=== PATIENT | female | born 1950 | race Caucasian/White ===

== ENCOUNTER → 2016-05-05 | Outpatient (CLI) | payer OTHER ==
[~2016-05-05] MED LIST: CIPR500T89 PO; FLUO10TA2; LISI10TA4 PO; LOPR50TA OR; METO25TA2; PERC5TAB6 PO; PRAV10TA2; PRAV20TA2 PO; PREV15CA OR; PROZ40CA OR; SERT-138 PO; SERT-141 PO; ZOFR4TAB3 PO; ZOFR4TAB3 SL; aleve
--- NOTE | 2016-05-05 15:35 | REPMRS ---
Patient History The patient states she has not had a clinical breast exam in over a year. Patient is postmenopausal and is nulliparous. Family history of breast cancer in sister at age 50 and breast cancer in mother at age 70. Digital Mammo Screening Bilat: May 05, 2016 - Exam #: [id number] Bilateral CC and MLO view(s) were taken. Technologist: Amy Infante, Technologist Prior study comparison: June 05, 2014, bilateral digital mammo screening bilat performed at [facility]. December 02, 2010, digital bilateral screening mammo performed at [facility]. FINDINGS: There are scattered fibroglandular densities. There has been no change in the appearance of the mammogram from the prior studies. There is a mild amount of scattered fibroglandular density which is fairly symmetric. There is no interval development of dominant mass, architectural distortion, or clustered microcalcification suggestive of malignancy. ASSESSMENT: BI-RADS/ACR category 1 mammogram. Negative. Recommendation Routine screening mammogram in 1 year (for women over age 40). This mammogram was interpreted with the aid of an FDA-approved computer-aided dectection system. Electronically Signed By: Brodie Atwood MD 05/05/16 [id number]
== END ==
LOC: M RAD 14:46
PROVIDERS: ATTEND Nurse Practitioner Adult Health
DX: Z12.31 Encounter for screening mammogram for malignant neoplasm of breast (principal)

== ENCOUNTER 2016-08-18 09:22 | Emergency (ER) | payer OTHER ==
[~2016-08-18] VITALS: Ht 167.6 cm; Wt 92.5 kg
[~2016-08-18 09:22] MED LIST changes: -SERT-141 PO; +SERT50TA PO
[2016-08-18 09:24] VITALS: BP 171/92
[2016-08-18] MEDS ORDERED: GABA-279 PO (09:39)
[2016-08-18] MEDS ORDERED: ASPI81TA85 PO (09:39)
[2016-08-18] MEDS ORDERED: CLIN1CAP5 PO ×2 (09:39→11:14)
[2016-08-18] MEDS ORDERED: NAPR500T2 PO (11:40)
== END 2016-08-18 11:34 | disposition home or self-care (01) ==
LOC: M ED 11:30
DX: L03.90 Cellulitis, unspecified (principal); K14.0 Glossitis; G47.33 Obstructive sleep apnea (adult) (pediatric); Z87.891 Personal history of nicotine dependence; Z87.442 Personal history of urinary calculi; Z98.890 Other specified postprocedural states; Z79.899 Other long term (current) drug therapy; Z79.2 Long term (current) use of antibiotics; Z79.82 Long term (current) use of aspirin; Z88.0 Allergy status to penicillin; Z88.5 Allergy status to narcotic agent; Z88.8 Allergy status to other drugs, medicaments and biological substances

== ENCOUNTER 2016-09-10 13:42 | Emergency (ER) | payer OTHER ==
[~2016-09-10] VITALS: Ht 167.6 cm; Wt 92.5 kg
[~2016-09-10 13:42] MED LIST changes: +ASPI81TA85 PO; +CLIN1CAP5 PO; +GABA-279 PO; +NAPR500T2 PO
[2016-09-10] MEDS ORDERED: PERCOCET 5MG/325MG TAB PO ONE (15:00)
[2016-09-10 15:13] LABS: BASO # 0.1 K/mm3 (0.0-0.2); BASO % 1.2 % (0.0-1.0); EOS # 0.5 K/mm3 (0.0-0.50); EOS % 6.9 % (0.0-3.0); LARGE UNSTAINED CELL # 0.1 K/mm3 (0.0-0.4); LARGE UNSTAINED CELL % 1.9 % (0.0-4.0); LYMPH # 2.8 K/mm3 (1.5-4.5); LYMPH % 35.7 % (24.0-44.0); MEAN CORPUSCULAR HEMOGLOBIN 30.2 pg (27.0-33.0); MEAN CORPUSCULAR HGB CONC 33.4 g/dl (32.0-36.5); MEAN CORPUSCULAR VOLUME 90.5 fl (80.0-96.0); MONO # 0.6 K/mm3 (0.0-0.8); MONO % 8.5 % (0.0-5.0); NEUTROPHILS # 3.5 K/mm3 (1.8-7.7); NEUTROPHILS % 45.9 % (36.0-66.0); PLATELET COUNT, AUTOMATED 306 k/mm3 (150-450); RED CELL DISTRIBUTION WIDTH 12.3 % (11.5-14.5); WHITE BLOOD COUNT 7.6 K/mm3 (4.0-10.0)
[2016-09-10 15:35] LABS: ANION GAP 4 MEQ/L (8-16); BLOOD UREA NITROGEN 18 MG/DL (7-18); CALCIUM LEVEL 9.6 MG/DL (8.8-10.2); CARBON DIOXIDE LEVEL 32 MEQ/L (21-32); CHLORIDE LEVEL 106 MEQ/L (98-107); GLOMERULAR FILTRATION RATE > 60.0 (>45); GLUCOSE, FASTING 91 MG/DL (80-110); POTASSIUM SERUM 4.7 MEQ/L (3.5-5.1); SODIUM LEVEL 142 MEQ/L (136-145)
--- NOTE | 2016-09-10 15:54 | REP ---
Clinical: Right flank pain. Findings: Lung bases demonstrate mild chronic stable changes. Visualized portions of the heart and pericardium are normal. Fatty infiltration to the liver noted. Spleen, pancreas, gallbladder, bilateral adrenal glands and kidneys are essentially normal. 1 mm nonobstructing right renal calculus cannot be excluded (image 68). Evidence of prior gastric surgery. Small and large bowel without obstruction or acute inflammatory process. Pelvis demonstrates collapsed bladder and evidence for prior hysterectomy. No ascites. No adenopathy. No free air. Atherosclerotic changes of the aorta noted without aneurysm. Musculoskeletal structures demonstrate age-related degenerative changes without focal osseous abnormality Impression: Fatty infiltration to the liver without focal hepatic lesion identified. 1 mm nonobstructing right renal calculus. No acute intra-abdominal or pelvic pathology appreciated. Signed by Zaid Cueto MD 09/10/2016 03:45 P
[2016-09-10] MEDS ORDERED: ZANA4TAB PO (16:29)
[2016-09-10 16:39] VITALS: BP 144/72
== END 2016-09-10 16:47 | disposition home or self-care (01) ==
LOC: M ED 15:02
DX: M54.5 Low back pain (principal); Z87.442 Personal history of urinary calculi; E78.5 Hyperlipidemia, unspecified; F32.9 Major depressive disorder, single episode, unspecified; K76.9 Liver disease, unspecified; N20.0 Calculus of kidney; Z79.82 Long term (current) use of aspirin; Z79.899 Other long term (current) drug therapy; Z88.5 Allergy status to narcotic agent; Z88.0 Allergy status to penicillin; Z88.8 Allergy status to other drugs, medicaments and biological substances

== ENCOUNTER → 2016-10-14 | Outpatient (CLI) | payer OTHER ==
[~2016-10-14] MED LIST changes: +CYCL5TA PO; +TRAM50TA2 PO; +ZANA4TAB PO; +ZANTTAB9 PO
--- NOTE | 2016-10-15 01:19 | REP ---
Clinical: Pain. Technique: AP and frog lateral views of the left hip. Findings: Mild age-related changes include increased sclerosis to the acetabular roof and minimal joint space narrowing. No significant osteophytosis, cortical irregularity or periarticular calcifications are appreciated. Impression: Mild age-related degenerative changes. Signed by Zaid Cueto MD 10/15/2016 01:11 A
--- NOTE | 2016-10-15 02:01 | REP ---
Clinical: Bilateral knee pain. Technique: AP and lateral views of the right and left knee. Comparison: Left knee dated 11/03/06 Findings: Moderate bilateral tricompartmental osteoarthritic degenerative changes are appreciated. Findings include subchondral sclerosis along the tibial plateau, cortical irregularity, elements of chondrocalcinosis as well as patellofemoral joint space narrowing with associated subchondral sclerosis and marginal osteophytes. No acute fracture dislocation. No obvious effusion. Impression: Moderate bilateral tricompartmental osteoarthritic degenerative changes. Signed by Zaid Cueto MD 10/15/2016 01:53 A
== END ==
LOC: M RAD 15:29
PROVIDERS: ATTEND Nurse Practitioner Adult Health
DX: M17.12 Unilateral primary osteoarthritis, left knee (principal); M17.0 Bilateral primary osteoarthritis of knee

== ENCOUNTER 2016-10-16 04:34 | Emergency (ER) | payer OTHER ==
[~2016-10-16] VITALS: Ht 167.6 cm; Wt 95.0 kg
[~2016-10-16 04:34] MED LIST changes: +CIPR-249 PO; -CIPR500T89 PO; +CLIN150C14 PO; -CLIN1CAP5 PO; -CYCL5TA PO; -NAPR500T2 PO; +NAPR500T3 PO; +PERC5TAB12 PO; -PERC5TAB6 PO; -TRAM50TA2 PO; -ZANTTAB9 PO
[2016-10-16] MEDS ORDERED: ZANTTAB9 PO (04:44)
[2016-10-16] MEDS ORDERED: NS 1,000 ML IV ONE (06:00)
[2016-10-16] MEDS ORDERED: ONDANSETRON 4MG/2ML VIAL (J2405) IV ONE (06:00)
[2016-10-16] MEDS: MORPHINE 4 MG/ML 1ML SYRINGE IV PRN ×2 (06:33→06:59)
[2016-10-16 06:40] LABS: BASO # 0.1 K/mm3 (0.0-0.2); BASO % 0.9 % (0.0-1.0); EOS # 0.3 K/mm3 (0.0-0.50); LARGE UNSTAINED CELL # 0.2 K/mm3 (0.0-0.4); LARGE UNSTAINED CELL % 1.6 % (0.0-4.0); LYMPH # 2.1 K/mm3 (1.5-4.5); LYMPH % 19.6 % (24.0-44.0); MEAN CORPUSCULAR HEMOGLOBIN 30.5 pg (27.0-33.0); MEAN CORPUSCULAR HGB CONC 34.2 g/dl (32.0-36.5); MEAN CORPUSCULAR VOLUME 89.1 fl (80.0-96.0); MONO # 0.4 K/mm3 (0.0-0.8); MONO % 3.8 % (0.0-5.0); NEUTROPHILS # 6.9 K/mm3 (1.8-7.7); NEUTROPHILS % 71.1 % (36.0-66.0); PLATELET COUNT, AUTOMATED 297 k/mm3 (150-450); RED CELL DISTRIBUTION WIDTH 12.2 % (11.5-14.5); WHITE BLOOD COUNT 9.7 K/mm3 (4.0-10.0)
--- NOTE | 2016-10-16 06:50 | REPUSA ---
CLINICAL HISTORY: Abdominal pain. TECHNIQUE: Multiple axial, sagittal and coronal CT images were obtained through the abdomen and pelvi s without administration of oral or IV contrast material. COMMENTS: The liver is moderately enlarged with decreased attenuation without mass or defect. There is no intra or extrahepatic biliary ductal dilatation. The spleen is normal. The gallbladder is within normal li mits. The pancreas is of normal contour and attenuation characteristics. There is no evidence of adre nal mass. 3 mm right renal nonobstructing stone. The kidneys are otherwise normal in size, shape and configuration. No ureteral calculi are identified . There is no hydroureter or hydronephrosis. There is no evidence for appendicitis. Fluid and mildly dilated proximal small bowels. Transition to normal caliber small bowels in the left lower quadrant. There is no evidence of abdominal ascites or lymphadenopathy. There is no evidence of intrinsic or extrinsic bladder mass. There is no pelvic ascites or lymphadeno zandra. Diffuse thickening of the wall of the bladder. Images of the lung bases show no evidence of pleural or parenchymal mass. There are no pleural effusi ons. The bony structures are free of lytic or blastic lesions. Multilevel degenerative changes are seen in volving the thoracolumbar spine. Scattered calcifications are seen involving the aorta and major branches compatible with atherosclero sis. IMPRESSION: Ileus versus partial small bowel obstruction. Suspected transition zone in the left lower quadrant. Nonobstructing right nephrolithiasis. Surgical changes of the stomach. Prior hysterectomy. Thank you for your kind referral of this patient.
[2016-10-16 07:02] LABS: ALBUMIN 4.4 GM/DL (3.2-5.2); ALBUMIN/GLOBULIN RATIO 1.33 (1.00-1.93); ALKALINE PHOSPHATASE 88 U/L (45-117); ALT/SGPT 37 U/L (12-78); ANION GAP 9 MEQ/L (8-16); AST/SGOT 27 U/L (15-37); BILIRUBIN,DIRECT 0.1 MG/DL (0.0-0.2); BILIRUBIN,TOTAL 0.6 MG/DL (0.2-1.0); BLOOD UREA NITROGEN 18 MG/DL (7-18); CALCIUM LEVEL 10.1 MG/DL (8.8-10.2); CARBON DIOXIDE LEVEL 23 MEQ/L (21-32); CHLORIDE LEVEL 106 MEQ/L (98-107); CREATININE FOR GFR 0.84 MG/DL (0.55-1.02); GLOMERULAR FILTRATION RATE > 60.0 (>45); GLUCOSE, FASTING 127 MG/DL (80-110); POTASSIUM SERUM 4.4 MEQ/L (3.5-5.1); SODIUM LEVEL 138 MEQ/L (136-145); TOTAL PROTEIN 7.7 GM/DL (6.4-8.2)
[2016-10-16] MEDS ORDERED: KETOROLAC 30 MG/ML VIAL (J1885) IV ONE (08:30)
--- NOTE | 2016-10-16 09:46 | REP ---
RIGHT UPPER QUADRANT ULTRASOUND: Real-time sonographic evaluation of the right upper quadrant is performed. The gallbladder demonstrates no evidence of intraluminal sludge or calculi, wall thickening or pericholecystic fluid. There is no intrahepatic or extrahepatic biliary dilatation, common bile duct measuring 5 mm in diameter. The liver demonstrates diffuse heterogeneous increased echotexture compatible with diffuse fatty infiltration. No gross liver or pancreatic mass is seen. The pancreas is not well seen due to overlying bowel gas. Right kidney demonstrates no hydronephrosis or nephrolithiasis with normal size at 11.8 cm in length. IMPRESSION: Diffuse fatty infiltration of the liver. Otherwise negative right upper quadrant ultrasound. Signed by Elvin Goel MD 10/16/2016 03:12 P
--- NOTE | 2016-10-16 10:31 | REP ---
REASON FOR EXAM: Back pain and scoliosis. This examination was completed at 5:54 a.m. and as per protocol it should have been immediately sent to [facility] for interpretation, however, it has been brought to my attention for interpretation today at 9:45 a.m. This examination was performed in my absentia. Lumbar vertebral body height is within normal limits. There is retrolisthesis of L5 on S1. Air densities are seen in the L2-2 through L5-S1 disc spaces inclusive. A small amount of air density is seen posterior to the posterior cortical margin of the superior endplate of S1. There is mild rightward translation of L2 on L3. Modic type 3 endplate changes are seen at L3-4. CT cannot rule out an acute disc extrusion. At the T11-12 level there is no bony cause of foraminal narrowing or central canal stenosis. At the T12-L1 level there is no bony cause of foraminal narrowing or central canal stenosis. At the L1-2 level there is a broad based annular bulge without bony cause of foraminal narrowing or central canal stenosis. At the L2-3 level there is a broad based annular bulge with a far left lateral component which is probably contacting and displacing the exited L2 nerve. The broad based bulge appears to efface, flatten, and straighten the anterior thecal sac. At the L3-4 level there is a broad based annular bulge which appears to flatten and straighten the anterior thecal sac. There is a far right lateral component probably contacting and possibly displacing the exited L3 nerve. Degenerative facet joint changes were present bilaterally with thickening of the ligamentum flava and the factors in concert appear to be causing mild to moderate central canal stenosis. At the L4-5 level there is a broad based annular bulge with a prominent right lateral component which is probably contacting possibly displacing the exited L4 nerve on the right. Degenerative facet joint changes are present bilaterally with thickening of the ligamentum flava and the factors in concert appears to be causing mild central canal stenosis. There is flattening and straightening of the anterior thecal sac. At the L5-S1 level there is an asymmetric broad based annular bulge. Air density is seen on the posterior extent of the broad based bulge likely secondary to a disc protrusion which cannot be imaged by CT. The broad based bulge seen in conjunction with degenerative facet joint changes bilaterally and thickening of the ligamentum flava along with the aforementioned retrolisthesis of L5 upon S1 are causing moderate central canal stenosis. IMPRESSION: 1. CT cannot rule out an acute disc extrusion. 2. Multilevel discogenic changes and related findings with degenerative changes involving the facet joints as described above. 3. Air densities consistent with degenerative disc disease with particular note made at L5-S1 as described above. 4. Consider neurosurgical consultation and obtain lumbar spine MRI for further evaluation. Signed by Landry Ortiz DO 10/16/2016 10:40 A
[2016-10-16] MEDS ORDERED: MORPHINE 4 MG/ML 1ML SYRINGE IV PRN (11:00)
--- NOTE | 2016-10-16 13:14 | REP ---
REASON: Low back pain and left lower extremity radicular symptoms. COMPARISON: 10/05/2012. Once again, there is loss of disc space height and disc hydrational signal at every level status quo. The marrow signal is unchanged remaining within normal limits. No abnormal signal has developed in the imaged portion of the spinal cord. At the L1-2 level there is a broad based annular bulge which has not changed significantly from the prior exam. There is no disc herniation, foraminal narrowing, or corie central canal stenosis. At the L2-3 level there is an asymmetric broad based annular bulge which has increased only slightly from the prior exam. It contacts, but does not flatten or straighten the anterior thecal sac. Degenerative facet joint changes are seen bilaterally with thickening of the ligamentum flava and the factors in concert are causing mild central canal stenosis with narrowing of the lateral recesses status quo. There is no acute disc extrusion or corie foraminal narrowing. At the L3-4 level there is a broad based annular bulge which is essentially unchanged. Degenerative facet joint changes were again seen bilaterally with thickening of the ligamentum flava and the factors in concert are causing mild unchanged central canal stenosis. There is no foraminal narrowing of acute disc extrusion. At the L4-5 level there is a broad based annular bulge which is unchanged from the prior exam. There is a flattening and straightening of the anterior surface of the thecal sac. There is degenerative facet joint change seen bilaterally with thickening of the ligamentum flava and the factors in concert are causing mild unchanged central canal stenosis. There is no corie foraminal narrowing or acute disc extrusion. At the L5-S1 level there is a broad based annular bulge which has increased slightly from the prior exam and seen in conjunction with a small central disc protrusion which causes a focal concave anterior deformity of the anterior thecal sac. The broad based bulge causes slight left foraminal narrowing without compression of the left L5 nerve. The appearance of this is unchanged from the prior exam. Degenerative facet joint changes are again seen bilaterally with mild thickening of the ligamentum flavum and the factors in concert cause minimal central canal stenosis status quo. There is no evidence of an acute disc extrusion. IMPRESSION: Multilevel discogenic changes as described above. Signed by Landry Ortiz DO 10/16/2016 01:43 P
[2016-10-16] MEDS ORDERED: TRAM50TA2 PO (14:34)
[2016-10-16] MEDS ORDERED: CYCL5TAB PO (14:35)
[2016-10-16 15:06] VITALS: BP 130/63
--- NOTE | 2016-10-19 15:12 | ED PDOC ---
Post-Departure Follow-Up radiology rpeort faxed to Annamaria Suazo MD Oct 19, 2016 15:12
== END 2016-10-16 15:19 | disposition home or self-care (01) ==
LOC: M ED 08:10
DX: M51.37 Other intervertebral disc degeneration, lumbosacral region (principal); N20.0 Calculus of kidney; K76.0 Fatty (change of) liver, not elsewhere classified; G89.29 Other chronic pain; Z79.82 Long term (current) use of aspirin; Z79.899 Other long term (current) drug therapy; Z88.0 Allergy status to penicillin; Z88.6 Allergy status to analgesic agent; Z88.8 Allergy status to other drugs, medicaments and biological substances
CPT/HCPCS: 72131; 72148; 74176; 76705; 80048; 80076; 81001; 83690; 85025; 87086; 93041; 96361; 96374; 96375; 99285; J1885; J2405

== ENCOUNTER 2017-01-28 09:52 | Outpatient (CLI) | payer OTHER ==
[~2017-01-28] VITALS: Ht 167.6 cm; Wt 93.4 kg
[~2017-01-28 09:52] MED LIST changes: +CYCL5TAB PO; +TRAM50TA2 PO; +ZANTTAB9 PO
[2017-01-28] MEDS ORDERED: NS 1,000 ML IV ONE (10:00)
[2017-01-28] MEDS ORDERED: PROPOFOL 500 MG/50 ML VIAL As Ordered ONE (10:36)
[2017-01-28] MEDS ORDERED: LIDOCAINE 2% INJ 100 MG/5 ML SDV (FOR ANES.) As Ordered ONE (10:37)
--- NOTE | 2017-01-28 11:44 | ROOR ---
Patient Name: Shirley Hernandez Procedure Date: 01/28/2017 11:20 AM Date of : 1950 Age: 66 Room: [facility] Gender: Female Note Status: Finalized Procedure: Upper GI endoscopy Indications: Surveillance for malignancy due to personal history of Becker's esophagus Providers: Asher CAMACHO MD Referring MD: Colin Boogie MD Requesting Provider: Medicines: Monitored Anesthesia Care Complications: No immediate complications. Procedure: Pre-Anesthesia Assessment: - The heart rate, respiratory rate, oxygen saturations, blood pressure, adequacy of pulmonary ventilation, and response to care were monitored throughout the procedure. The Endoscope was introduced through the mouth, and advanced to the jejunum. The upper GI endoscopy was accomplished without difficulty. The patient tolerated the procedure well. Findings: The Z-line was variable and was found 37 cm from the incisors. This was biopsied with a cold forceps for histology. The examined esophagus was normal. Diffuse mild inflammation characterized by erythema was found in the entire examined stomach. Evidence of a gastrojejunostomy was found in the gastric body. This was characterized by erythema. This was biopsied with a cold forceps for histology. Evidence of a fundoplication was found in the cardia. The wrap appeared intact. The examined duodenum was normal. The examined jejunum was normal. Impression: - Normal esophagus. with Z-line variable, 37 cm from the incisors. Biopsied. - A fundoplication was found at the cardia. The wrap appears intact. - A gastrojejunostomy was found in the body of the stomach, it is widely patent and characterized by erythema. Biopsied. - Scope passed through gastrojejunostomy into a normal appearing jejunum. - The antrum/pylorus is also easily passable and is normal in appearance. Normal examined duodenum. Recommendation: - Telephone endoscopist for pathology results in 2 weeks. - Repeat upper endoscopy in 3 years for surveillance. - Continue present medications. Asher Camacho MD Asher CAMACHO MD 01/28/2017 11:43:43 AM This report has been signed electronically. Number of Addenda: 0 Note Initiated On: 01/28/2017 11:20 AM Estimated Blood Loss: Estimated blood loss: none.
--- NOTE | 2017-01-28 12:00 | ROOR ---
Patient Name: Shirley Hernandez Procedure Date: 01/28/2017 11:21 AM Date of : 1950 Age: 66 Room: [facility] Gender: Female Note Status: Finalized Procedure: Colonoscopy Indications: Screening in patient at increased risk: Colorectal cancer in sister before age 60 Providers: Asher CAMACHO MD Referring MD: Colin Boogie MD Requesting Provider: Medicines: Monitored Anesthesia Care Complications: No immediate complications. Procedure: Pre-Anesthesia Assessment: - The heart rate, respiratory rate, oxygen saturations, blood pressure, adequacy of pulmonary ventilation, and response to care were monitored throughout the procedure. The Colonoscope was introduced through the anus and advanced to the terminal ileum, with identification of the appendiceal orifice and IC valve. The colonoscopy was performed without difficulty. The patient tolerated the procedure well. The quality of the bowel preparation was good. Findings: The perianal and digital rectal examinations were normal. (Exam: Complete, Prep: Good or Excellent.) Internal hemorrhoids were found during retroflexion. The hemorrhoids were large. The entire examined colon appeared normal on direct and retroflexion views. Impression: - (Exam: Complete, Prep: Good or Excellent.) - Internal hemorrhoids. - The entire colon is normal on direct and retroflexion views. - No specimens collected. Recommendation: - Repeat colonoscopy in 5 years for screening purposes. - (in view of early colon cancer and [employer]ISTR[employer] malignancies in your family history, would consider repeating colonoscopy in 3 years--to be discussed) Asher Camacho MD Asher CAMACHO MD 01/28/2017 11:59:30 AM This report has been signed electronically. Number of Addenda: 0 Note Initiated On: 01/28/2017 11:21 AM Estimated Blood Loss: Estimated blood loss: none.
[2017-01-28 12:25] VITALS: BP 156/93
== END 2017-01-28 12:28 | disposition home or self-care (01) ==
LOC: M OPP 09:52
PROVIDERS: ATTEND Internal Medicine Gastroenterology
DX: Z12.11 Encounter for screening for malignant neoplasm of colon (principal); Z80.0 Family history of malignant neoplasm of digestive organs; K64.8 Other hemorrhoids; K22.70 Barrett's esophagus without dysplasia; K22.8 Other specified diseases of esophagus; Z98.0 Intestinal bypass and anastomosis status; Z98.890 Other specified postprocedural states; K31.89 Other diseases of stomach and duodenum; I25.6 Silent myocardial ischemia; E78.5 Hyperlipidemia, unspecified; K59.00 Constipation, unspecified; R19.7 Diarrhea, unspecified; F32.9 Major depressive disorder, single episode, unspecified; G43.909 Migraine, unspecified, not intractable, without status migrainosus; G61.81 Chronic inflammatory demyelinating polyneuritis; G47.30 Sleep apnea, unspecified; Z87.442 Personal history of urinary calculi; Z87.891 Personal history of nicotine dependence; Z87.19 Personal history of other diseases of the digestive system; Z88.5 Allergy status to narcotic agent; Z88.8 Allergy status to other drugs, medicaments and biological substances; Z88.0 Allergy status to penicillin; Z79.899 Other long term (current) drug therapy; Z80.3 Family history of malignant neoplasm of breast; Z80.8 Family history of malignant neoplasm of other organs or systems

== ENCOUNTER → 2017-05-10 | Outpatient (CLI) | payer OTHER ==
[2017-05-10 10:35] LABS: HEMATOCRIT 47.3 % (36.0-47.0); HEMOGLOBIN 15.4 g/dl (12.0-16.0); MEAN CORPUSCULAR HEMOGLOBIN 29.2 pg (27.0-33.0); MEAN CORPUSCULAR HGB CONC 32.6 g/dl (32.0-36.5); MEAN CORPUSCULAR VOLUME 89.6 fl (80.0-96.0); PLATELET COUNT, AUTOMATED 335 10^3/uL (150-450); RED BLOOD COUNT 5.28 10^6/uL (4.00-5.40); RED CELL DISTRIBUTION WIDTH 12.7 % (11.5-14.5); WHITE BLOOD COUNT 6.1 10^3/uL (4.0-10.0)
[2017-05-10 11:05] LABS: ESTIMATED AVERAGE GLUCOSE 120 MG/DL (60-110); HEMOGLOBIN A1c 5.8 %
[2017-05-10 11:23] LABS: ALBUMIN/GLOBULIN RATIO 1.21 (1.00-1.93); ALKALINE PHOSPHATASE 86 U/L (45-117); ALT/SGPT 38 U/L (12-78); ANION GAP 6 MEQ/L (8-16); AST/SGOT 26 U/L (7-37); BILIRUBIN,TOTAL 0.4 MG/DL (0.2-1.0); BLOOD UREA NITROGEN 15 MG/DL (7-18); CALCIUM LEVEL 9.6 MG/DL (8.8-10.2); CARBON DIOXIDE LEVEL 28 MEQ/L (21-32); CHLORIDE LEVEL 108 MEQ/L (98-107); CHOLESTEROL LEVEL 225 MG/DL (<200); CHOLESTEROL RISK RATIO 4.411 (<5); CREATININE FOR GFR 0.78 MG/DL (0.55-1.02); FREE T4 0.76 NG/DL (0.76-1.46); GLOMERULAR FILTRATION RATE > 60.0 (>45); GLUCOSE, FASTING 100 MG/DL (80-110); HDL CHOLESTEROL 51 MG/DL (>40); LDL CHOLESTEROL 142.8 MG/DL (<100); LIPASE 207 U/L (73-393); NON-HDL-C 174 MG/DL; POTASSIUM SERUM 4.5 MEQ/L (3.5-5.1); SODIUM LEVEL 142 MEQ/L (136-145); TOTAL PROTEIN 7.3 GM/DL (6.4-8.2); TRIGLYCERIDES LEVEL 156 MG/DL (<150)
== END ==
LOC: M LAB 09:38
DX: E03.9 Hypothyroidism, unspecified (principal)
CPT/HCPCS: 83690

== ENCOUNTER 2017-05-16 17:32 | Emergency (ER) | payer OTHER ==
[2017-05-16] MEDS: KETOROLAC TROMETHAMINE 10 MG TAB PO (18:50)
== END 2017-05-16 20:02 | disposition home or self-care (01) ==
LOC: M ED 17:32
DX: S43.401A Unspecified sprain of right shoulder joint, initial encounter (principal); W00.0XXA Fall on same level due to ice and snow, initial encounter; Y92.014 Private driveway to single-family (private) house as the place of occurrence of the external cause; I10 Essential (primary) hypertension; E78.5 Hyperlipidemia, unspecified; K21.9 Gastro-esophageal reflux disease without esophagitis; Z87.19 Personal history of other diseases of the digestive system; F32.9 Major depressive disorder, single episode, unspecified; F41.9 Anxiety disorder, unspecified; I25.2 Old myocardial infarction; G47.33 Obstructive sleep apnea (adult) (pediatric); G61.81 Chronic inflammatory demyelinating polyneuritis; Z79.899 Other long term (current) drug therapy; Z88.5 Allergy status to narcotic agent; Z88.8 Allergy status to other drugs, medicaments and biological substances; Z88.0 Allergy status to penicillin
CPT/HCPCS: 73030

== ENCOUNTER 2017-06-03 20:49 | Emergency (ER) | payer OTHER ==
[2017-06-03 21:44] LABS: BILIRUBIN, URINE MANUAL NEGATIVE (NEGATIVE); BLOOD URINE MANUAL RFX POSITIVE (NEGATIVE); GLUCOSE, URINE (UA) MANUAL NEGATIVE (NEGATIVE); KETONE, URINE MANUAL 1+ mg/dL (NEGATIVE); NITRITE, URINE MANUAL RFX NEGATIVE (NEGATIVE); PROTEIN, URINE MANUAL REFLEX 3+ mg/dL (NEGATIVE); UROBILINOGEN, URINE MANUAL NORMAL (NORMAL)
[2017-06-03] MEDS: ONDANSETRON 4MG/2ML VIAL (J2405) IV ×2 (21:45)
[2017-06-03] MEDS: MORPHINE 4 MG/ML 1ML VIAL (J2270) IV ×6 (21:46→23:34)
[2017-06-03] MEDS: NS 1,000 ML IV ×2 (21:46)
[2017-06-03 21:47] LABS: AMORPHOUS SEDIMENT, URINE LARGE AMOUNT (NEGATIVE); BACTERIA, URINE NONE SEEN; CALCIUM OXALATE CRYSTALS,URINE SMALL AMOUNT /hpf; HYALINE CAST, URINE NONE SEEN /lpf (0-1); MICROSCOPIC EXAM PERFORMED; RBC, URINE TNTC /hpf (0-3); SQUAMOUS EPITHELIAL CELL URINE NONE SEEN /hpf (SMALL AMT)
[2017-06-03 22:12] LABS: BASO # 0.1 10^3/uL (0.0-0.2); BASO % 0.9 % (0.0-1.0); EOS # 0.6 10^3/uL (0.0-0.50); EOS % 4.8 % (0.0-3.0); HEMATOCRIT 44.8 % (36.0-47.0); HEMOGLOBIN 14.9 g/dl (12.0-16.0); IMMATURE GRANULOCYTE % 0.3 % (0-3.0); LYMPH # 2.7 10^3/uL (1.5-4.5); MEAN CORPUSCULAR HEMOGLOBIN 29.2 pg (27.0-33.0); MEAN CORPUSCULAR HGB CONC 33.3 g/dl (32.0-36.5); MEAN CORPUSCULAR VOLUME 87.8 fl (80.0-96.0); MONO # 1.2 10^3/uL (0.0-0.8); MONO % 10.6 % (0.0-5.0); NEUTROPHILS % 60.4 % (36.0-66.0); PLATELET COUNT, AUTOMATED 319 10^3/uL (150-450); WHITE BLOOD COUNT 11.6 10^3/uL (4.0-10.0)
[2017-06-03 22:38] LABS: ALBUMIN 4.1 GM/DL (3.2-5.2); ALBUMIN/GLOBULIN RATIO 1.28 (1.00-1.93); ALKALINE PHOSPHATASE 83 U/L (45-117); ALT/SGPT 48 U/L (12-78); ANION GAP 9 MEQ/L (8-16); AST/SGOT 39 U/L (7-37); BILIRUBIN,DIRECT < 0.1 MG/DL (0.0-0.2); BILIRUBIN,TOTAL 0.3 MG/DL (0.2-1.0); BLOOD UREA NITROGEN 21 MG/DL (7-18); CALCIUM LEVEL 9.2 MG/DL (8.8-10.2); CARBON DIOXIDE LEVEL 26 MEQ/L (21-32); CHLORIDE LEVEL 106 MEQ/L (98-107); GLOMERULAR FILTRATION RATE > 60.0 (>45); GLUCOSE, FASTING 141 MG/DL (70-100); LIPASE 415 U/L (73-393); SODIUM LEVEL 141 MEQ/L (136-145); TOTAL PROTEIN 7.3 GM/DL (6.4-8.2)
[2017-06-04] MEDS: KETOROLAC 30 MG/ML VIAL (J1885) IV ×2 (00:33)
== END 2017-06-04 01:56 | disposition home or self-care (01) ==
LOC: M ED 06-04 01:56
DX: N13.30 Unspecified hydronephrosis (principal); I10 Essential (primary) hypertension; R10.9 Unspecified abdominal pain; R16.0 Hepatomegaly, not elsewhere classified; I25.2 Old myocardial infarction; E78.5 Hyperlipidemia, unspecified; R51 Headache; Z87.891 Personal history of nicotine dependence; Z79.899 Other long term (current) drug therapy; Z88.5 Allergy status to narcotic agent; Z88.0 Allergy status to penicillin; Z88.8 Allergy status to other drugs, medicaments and biological substances
CPT/HCPCS: J2270; J2405

== ENCOUNTER → 2017-07-13 | Outpatient (CLI) | payer OTHER | LOC: M RAD 10:01 | DX: Z12.31 Encounter for screening mammogram for malignant neoplasm of breast (principal) | CPT/HCPCS: 77067 ==

== ENCOUNTER 2018-05-17 13:07 | Emergency (ER) | payer OTHER ==
[~2018-05-17] VITALS: Ht 167.6 cm; Wt 86.4 kg
[~2018-05-17 13:07] MED LIST changes: +FLOM0.4C39 PO; +GABA-1171 PO; -GABA-279 PO; +KETO10TAB PO; +MAGN500C PO; +NAPR-885 PO; -NAPR500T3 PO; +ZOFR4TAB14 PO; +ZOFR4TAB14 SL; -ZOFR4TAB3 PO; -ZOFR4TAB3 SL
[2018-05-17 13:59] LABS: BASO # 0.1 10^3/uL (0.0-0.2); BASO % 0.7 % (0.0-1.0); EOS # 0.4 10^3/uL (0.0-0.50); EOS % 3.8 % (0.0-3.0); HEMATOCRIT 44.5 % (36.0-47.0); HEMOGLOBIN 14.8 g/dl (12.0-15.5); LYMPH % 18.6 % (24.0-44.0); MEAN CORPUSCULAR HGB CONC 33.3 g/dl (32.0-36.5); MEAN CORPUSCULAR VOLUME 90.1 fl (80.0-96.0); MONO # 0.9 10^3/uL (0.0-0.8); MONO % 8.4 % (0.0-5.0); NEUTROPHILS # 7.3 10^3/uL (1.8-7.7); PLATELET COUNT, AUTOMATED 327 10^3/uL (150-450); RED BLOOD COUNT 4.94 10^6/uL (4.00-5.40); WHITE BLOOD COUNT 10.7 10^3/uL (4.0-10.0)
[2018-05-17 14:22] LABS: BLOOD UREA NITROGEN 17 MG/DL (7-18); CALCIUM LEVEL 9.5 MG/DL (8.8-10.2); CARBON DIOXIDE LEVEL 27 MEQ/L (21-32); CHLORIDE LEVEL 107 MEQ/L (98-107); CREATININE FOR GFR 0.62 MG/DL (0.55-1.30); GLOMERULAR FILTRATION RATE > 60.0 (>45); GLUCOSE, FASTING 92 MG/DL (70-100); POTASSIUM SERUM 4.3 MEQ/L (3.5-5.1); SODIUM LEVEL 139 MEQ/L (136-145)
--- NOTE | 2018-05-17 14:37 | REP ---
CT abdomen and pelvis without IV or oral contrast: Renal stone protocol. History: Left flank pain. History of stones. Comparison study: June 03, 2017. Findings: Preliminary ec teacher radiograph demonstrates clips in the left upper quadrant and left mid abdomen. Bowel gas pattern is otherwise unremarkable. The lung bases are clear on axial CT images. The liver shows moderate diffuse fatty infiltration. The liver is mildly enlarged measuring 17 cm in craniocaudal span in the midclavicular line unchanged. No focal liver mass lesion is seen. There are some areas of fat sparing near the gallbladder. The spleen is unremarkable. No adrenal lesion is seen on either side. The pancreas is normal in appearance. There are surgical clips adjacent to the gastroesophageal junction and in the small bowel mesentery to the left of midline. The appendix is surgically absent. Small and large intestinal bowel loops are normal in caliber. Uterus is surgically absent. No adnexal abnormality is seen. There is no evidence of hydronephrosis on either side. There is an intrarenal calculus in the mid kidney on the right measuring 2-3 mm in diameter. There is vascular calcification in the left kidney renal hilar region. These findings are unchanged. No ureteral stone is seen today. No bladder calculus is observed. No abdominal wall defect is seen. Bone window settings show degenerative spondylosis changes. Impression: Mild hepatomegaly. Moderate diffuse fatty infiltration of the liver. Postoperative changes including GE junction clips and left mid abdominal clips prior appendectomy and hysterectomy. There is an intrarenal calculus in the right mid kidney. No hydronephrosis is seen on either side. Electronically Signed by Eduardo Atwood MD 05/17/2018 05:37 P
[2018-05-17] MEDS ORDERED: PERCOCET 5MG/325MG TAB PO ONE (15:30)
[2018-05-17] MEDS ORDERED: METHOCARBAMOL 750 MG TAB PO ONE (15:30)
[2018-05-17] MEDS ORDERED: ROBA500T PO (16:42)
[2018-05-17] MEDS ORDERED: NORCOTAB PO (16:42)
[2018-05-17 16:59] VITALS: BP 155/92
== END 2018-05-17 17:03 | disposition home or self-care (01) ==
LOC: M ED 13:07
DX: S33.5XXA Sprain of ligaments of lumbar spine, initial encounter (principal); X58.XXXA Exposure to other specified factors, initial encounter; Y92.89 Other specified places as the place of occurrence of the external cause; R16.0 Hepatomegaly, not elsewhere classified; K76.0 Fatty (change of) liver, not elsewhere classified; N20.0 Calculus of kidney; D25.9 Leiomyoma of uterus, unspecified; I10 Essential (primary) hypertension; E78.5 Hyperlipidemia, unspecified; I25.2 Old myocardial infarction; K21.9 Gastro-esophageal reflux disease without esophagitis; G47.33 Obstructive sleep apnea (adult) (pediatric); F41.9 Anxiety disorder, unspecified; F32.9 Major depressive disorder, single episode, unspecified; G62.89 Other specified polyneuropathies; N93.8 Other specified abnormal uterine and vaginal bleeding; Z87.19 Personal history of other diseases of the digestive system; Z88.0 Allergy status to penicillin; Z88.5 Allergy status to narcotic agent; Z88.8 Allergy status to other drugs, medicaments and biological substances; Z79.899 Other long term (current) drug therapy

== ENCOUNTER → 2018-08-15 | Outpatient (CLI) | payer OTHER, MEDICARE ==
[~2018-08-15] MED LIST changes: +HYDR-3715 PO; +ROBA500T PO; +SERT-141 PO; -SERT50TA PO
--- NOTE | 2018-08-15 16:32 | REP ---
Right lower extremity Duplex Doppler venous ultrasound: Real time compression and duplex Doppler interrogation of the right lower extremity deep venous system is performed. The right common femoral, superficial femoral and popliteal veins are fully compressible with transducer pressure and demonstrate normal spontaneous and phasic flow, without evidence of deep venous thrombosis. Impression: No evidence of deep venous thrombosis of the right lower extremity femoral popliteal venous system. Electronically Signed by Elvin Goel MD 08/15/2018 04:24 P
--- NOTE | 2018-08-15 17:49 | REP ---
RIGHT KNEE, FIVE VIEWS: Five views of the right knee are performed. There is no acute fracture or dislocation. There is mild narrowing of the medial and lateral joint spaces with mild subchondral sclerosis and mild chondrocalcinosis. There are 3-4 small sclerotic densities in the proximal tibia medially which are unchanged since the prior study 10/14/2016 which may represent a cluster of small bone islands. There appears to be ligamentous calcification within the anterior cruciate ligament also unchanged. There is moderate narrowing of the lateral patellofemoral compartment with spurring and subchondral sclerosis. I do not see a significant joint effusion. IMPRESSION: Arthritic changes as above, appear stable compared to prior study 10/14/2016. Electronically Signed by Elvin Goel MD 08/15/2018 06:36 P
== END ==
LOC: M RAD 15:40
PROVIDERS: ATTEND Nurse Practitioner Adult Health
DX: M17.11 Unilateral primary osteoarthritis, right knee (principal); Z86.718 Personal history of other venous thrombosis and embolism

== ENCOUNTER 2019-02-23 16:26 | Emergency (ER) | payer MEDICARE, OTHER ==
[~2019-02-23] VITALS: Ht 167.6 cm; Wt 86.4 kg
[2019-02-23] MEDS ORDERED: ACETAMINOPHEN 325 MG TAB PO ONE (17:00)
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
[2019-02-23 17:56] VITALS: BP 150/92
== END 2019-02-23 18:01 | disposition home or self-care (01) ==
LOC: M ED 16:26
DX: S50.12XA Contusion of left forearm, initial encounter (principal); S16.1XXA Strain of muscle, fascia and tendon at neck level, initial encounter; V43.52XA Car driver injured in collision with other type car in traffic accident, initial encounter; Y92.410 Unspecified street and highway as the place of occurrence of the external cause; M25.78 Osteophyte, vertebrae; M47.812 Spondylosis without myelopathy or radiculopathy, cervical region; M48.02 Spinal stenosis, cervical region; I10 Essential (primary) hypertension; F33.9 Major depressive disorder, recurrent, unspecified; K76.0 Fatty (change of) liver, not elsewhere classified; G61.81 Chronic inflammatory demyelinating polyneuritis

== ENCOUNTER → 2019-03-31 | Outpatient (CLI) | payer OTHER ==
--- NOTE | 2019-03-31 13:02 | REPPI ---
Clinical: Left wrist pain. Fall. Technique: AP, lateral, bilateral oblique views left wrist . Findings: The carpal bones, surrounding osseous structures, soft tissues, and joint spaces are normal. There is no evidence for acute fracture or dislocation. No subcutaneous emphysema or radiodense foreign body. Impression: No acute fracture or dislocation Electronically Signed by Zaid Cueto MD 03/31/2019 12:53 P
== END ==
LOC: M PLAIMG 12:38
PROVIDERS: ATTEND Internal Medicine
DX: M25.532 Pain in left wrist (principal)

== ENCOUNTER → 2019-07-25 | Outpatient (REF) | payer OTHER ==
[2019-07-25 10:13] LABS: HEMATOCRIT 47.6 % (36.0-47.0); HEMOGLOBIN 15.6 g/dl (12.0-15.5); MEAN CORPUSCULAR HEMOGLOBIN 30.4 pg (27.0-33.0); MEAN CORPUSCULAR HGB CONC 32.8 g/dl (32.0-36.5); MEAN CORPUSCULAR VOLUME 92.6 fl (80.0-96.0); PLATELET COUNT, AUTOMATED 323 10^3/uL (150-450); RED BLOOD COUNT 5.14 10^6/uL (4.00-5.40); WHITE BLOOD COUNT 6.4 10^3/uL (4.0-10.0)
[2019-07-25 10:51] LABS: ALBUMIN 3.9 GM/DL (3.2-5.2); ALT/SGPT 44 U/L (12-78); AMYLASE 44 U/L (25-115); BILIRUBIN,TOTAL 0.4 MG/DL (0.2-1.0); BLOOD UREA NITROGEN 16 MG/DL (7-18); CALCIUM LEVEL 10.2 MG/DL (8.8-10.2); CARBON DIOXIDE LEVEL 30 MEQ/L (21-32); CHLORIDE LEVEL 106 MEQ/L (98-107); CHOLESTEROL LEVEL 194 MG/DL (<200); CHOLESTEROL RISK RATIO 3.959 (<5); CREATININE FOR GFR 0.67 MG/DL (0.55-1.30); GLOMERULAR FILTRATION RATE > 60.0 (>45); GLUCOSE, FASTING 95 MG/DL (70-100); HDL CHOLESTEROL 49 MG/DL (>40); LDL CHOLESTEROL 110 MG/DL (<100); LIPASE 127 U/L (73-393); NON-HDL-C 145 MG/DL; POTASSIUM SERUM 4.8 MEQ/L (3.5-5.1); SODIUM LEVEL 140 MEQ/L (136-145); TOTAL PROTEIN 7.2 GM/DL (6.4-8.2); TRIGLYCERIDES LEVEL 174 MG/DL (<150)
[2019-07-25 10:53] LABS: HEMOGLOBIN A1c 6.1 %
== END ==
LOC: M SFHCPLAZ 08:33
PROVIDERS: ATTEND Internal Medicine
DX: E78.00 Pure hypercholesterolemia, unspecified (principal); E03.9 Hypothyroidism, unspecified; K86.1 Other chronic pancreatitis; G61.81 Chronic inflammatory demyelinating polyneuritis; R73.09 Other abnormal glucose

== ENCOUNTER → 2019-08-30 | Outpatient (REF) | payer OTHER ==
[2019-08-30 18:45] LABS: APPEARANCE, URINE CLOUDY (CLEAR); BACTERIA, URINE AUTO 1+ (NEGATIVE); BILIRUBIN, URINE AUTO NEGATIVE (NEGATIVE); BLOOD, URINE BLOOD NEGATIVE (NEGATIVE); CALCIUM OXALATE CRYSTALS LARGE; COLOR, URINE YELLOW (YELLOW); GLUCOSE, URINE (UA) AUTO NEGATIVE (NEGATIVE); KETONE, URINE AUTO NEGATIVE (NEGATIVE); LEUKOCYTE ESTERASE, URINE AUTO 1+ (NEGATIVE); NITRITE, URINE AUTO NEGATIVE (NEGATIVE); PROTEIN, URINE AUTO NEGATIVE (NEGATIVE); RBC, URINE AUTO 9 /HPF (0-3); SPECIFIC GRAVITY URINE AUTO 1.013 (1.002-1.035); SQUAMOUS EPITHELIAL CELL UR AU 0 /HPF (0-6); WBC, URINE AUTO 11 /HPF (0-3)
== END ==
LOC: M SFHCPLAZ 17:04
PROVIDERS: ATTEND Family Medicine
DX: R39.15 Urgency of urination (principal)

== ENCOUNTER → 2019-09-07 | Outpatient (REF) | payer OTHER ==
[2019-09-07 19:10] LABS: BASO # 0.1 10^3/uL (0.0-0.2); BASO % 1.3 % (0.0-1.0); EOS # 0.4 10^3/uL (0.0-0.5); EOS % 5.5 % (0.0-3.0); HEMOGLOBIN 14.8 g/dl (12.0-15.5); LYMPH # 2.5 10^3/uL (1.5-5.0); LYMPH % 32.1 % (24.0-44.0); MEAN CORPUSCULAR HGB CONC 32.2 g/dl (32.0-36.5); MEAN CORPUSCULAR VOLUME 93.1 fl (80.0-96.0); MONO # 0.8 10^3/uL (0.0-0.8); MONO % 10.7 % (0.0-5.0); NEUTROPHILS # 3.9 10^3/uL (1.5-8.5); NEUTROPHILS % 50.1 % (36.0-66.0); PLATELET COUNT, AUTOMATED 322 10^3/uL (150-450); RED BLOOD COUNT 4.94 10^6/uL (4.00-5.40); WHITE BLOOD COUNT 7.8 10^3/uL (4.0-10.0)
[2019-09-07 19:42] LABS: ERYTHROCYTE SEDIMENTATION RATE 2 mm/hr (0-30)
[2019-09-07 19:47] LABS: ALT/SGPT 44 U/L (12-78); BILIRUBIN,DIRECT 0.1 MG/DL (0.0-0.2); BILIRUBIN,TOTAL 0.4 MG/DL (0.2-1.0); BLOOD UREA NITROGEN 21 MG/DL (7-18); C REACTIVE PROTEIN QUANTITATIV < 0.30 MG/DL (0.00-0.30); CALCIUM LEVEL 9.2 MG/DL (8.8-10.2); CARBON DIOXIDE LEVEL 29 MEQ/L (21-32); CHLORIDE LEVEL 104 MEQ/L (98-107); CREATININE FOR GFR 0.69 MG/DL (0.55-1.30); GLOMERULAR FILTRATION RATE > 60.0 (>45); GLUCOSE, FASTING 158 MG/DL (70-100); POTASSIUM SERUM 4.2 MEQ/L (3.5-5.1); SODIUM LEVEL 139 MEQ/L (136-145); TOTAL 25(OH) VITAMIN D 20.9 NG/ML (30.0-100.0); TOTAL PROTEIN 7.2 GM/DL (6.4-8.2)
== END ==
LOC: M SFHCPLAZ 14:31
PROVIDERS: ATTEND Family Medicine
DX: R82.2 Biliuria (principal); M79.604 Pain in right leg; M79.605 Pain in left leg

== ENCOUNTER → 2019-09-07 | Outpatient (CLI) | payer OTHER ==
--- NOTE | 2019-09-07 15:32 | REPMRS ---
Patient History The patient states she has not had a clinical breast exam in over a year. Family history of breast cancer at age 70 in mother, breast cancer at age 50 in sister. Digital Woman Screen Mammo: September 07, 2019 - Exam #: [id number] Bilateral CC and MLO view(s) were taken. Technologist: Sheyla Gomez, Technologist Prior study comparison: July 13, 2017, bilateral digital mammo screening bilat, performed at [facility]. May 05, 2016, bilateral digital mammo screening bilat, performed at [facility]. June 05, 2014, bilateral digital mammo screening bilat, performed at [facility]. FINDINGS: The breast tissue is almost entirely fat. The Volpara volumetric breast density category is: A. There are large benign calcifications again noted on the right. There has been no change in the appearance of the mammogram from the prior studies. There is no interval development of dominant mass, architectural distortion, or grouped microcalcification typical of malignancy. 3-D tomosynthesis shows no additional findings. Assessment: BI-RADS/ACR category 2 mammogram. Benign Findings. Recommendation Routine screening mammogram of both breasts in 1 year (for women over age 40). This patient's Lifetime Breast Cancer RIsk is estimated at 18.1 %. This mammogram was interpreted with the aid of an FDA-approved computer-aided dectection system. Electronically Signed By: Brodie Atwood MD 09/07/19 [id number]
== END ==
LOC: M WHC 14:50
PROVIDERS: ATTEND Family Medicine
DX: Z12.31 Encounter for screening mammogram for malignant neoplasm of breast (principal)

== ENCOUNTER → 2019-09-21 | Outpatient (REF) | payer OTHER ==
[2019-09-21 20:21] LABS: APPEARANCE, URINE HAZY (CLEAR); BACTERIA, URINE AUTO NEGATIVE (NEGATIVE); BILIRUBIN, URINE AUTO NEGATIVE (NEGATIVE); BLOOD, URINE BLOOD NEGATIVE (NEGATIVE); CALCIUM OXALATE CRYSTALS LARGE; COLOR, URINE YELLOW (YELLOW); GLUCOSE, URINE (UA) AUTO NEGATIVE (NEGATIVE); KETONE, URINE AUTO NEGATIVE (NEGATIVE); LEUKOCYTE ESTERASE, URINE AUTO TRACE (NEGATIVE); MUCUS, URINE SMALL (NEGATIVE); NITRITE, URINE AUTO NEGATIVE (NEGATIVE); PROTEIN, URINE AUTO NEGATIVE (NEGATIVE); RBC, URINE AUTO 3 /HPF (0-3); SPECIFIC GRAVITY URINE AUTO 1.015 (1.002-1.035); SQUAMOUS EPITHELIAL CELL UR AU 0 /HPF (0-6); UROBILINOGEN, URINE AUTO 0.2 mg/dL (0.0-2.0); WBC, URINE AUTO 1 /HPF (0-3)
== END ==
LOC: M SFHCPLAZ 09:39
PROVIDERS: ATTEND Nurse Practitioner Family
DX: N39.41 Urge incontinence (principal)

== ENCOUNTER → 2019-10-23 | Outpatient (CLI) | payer OTHER ==
[2019-10-23 18:01] LABS: BASO # 0.1 10^3/uL (0.0-0.2); BASO % 1.4 % (0.0-1.0); EOS # 0.4 10^3/uL (0.0-0.5); EOS % 4.7 % (0.0-3.0); HEMATOCRIT 43.8 % (36.0-47.0); HEMOGLOBIN 14.3 g/dl (12.0-15.5); LYMPH # 2.2 10^3/uL (1.5-5.0); LYMPH % 30.3 % (24.0-44.0); MEAN CORPUSCULAR HEMOGLOBIN 30.2 pg (27.0-33.0); MEAN CORPUSCULAR HGB CONC 32.6 g/dl (32.0-36.5); MEAN CORPUSCULAR VOLUME 92.4 fl (80.0-96.0); MONO # 0.9 10^3/uL (0.0-0.8); MONO % 12.7 % (0.0-5.0); NEUTROPHILS # 3.7 10^3/uL (1.5-8.5); NEUTROPHILS % 50.5 % (36.0-66.0); PLATELET COUNT, AUTOMATED 312 10^3/uL (150-450); RED BLOOD COUNT 4.74 10^6/uL (4.00-5.40); WHITE BLOOD COUNT 7.4 10^3/uL (4.0-10.0)
[2019-10-23 18:09] LABS: C REACTIVE PROTEIN QUANTITATIV < 0.30 MG/DL (0.00-0.30); RHEUMATOID FACTOR QUANT < 10.0 IU/ML (<15.0)
[2019-10-23 20:50] LABS: ERYTHROCYTE SEDIMENTATION RATE 1 mm/hr (0-30)
[2019-10-25 16:10] LABS: ANTI DOUBLE STRAND-DNA AB 11 IU/mL (0-9); ANTINUCLEAR ANTIBODIES DIRECT Positive (Negative); Lyme Disease IgG/IgM Antibodie <0.91 ISR (0.00-0.90); Lyme Disease IgM Ab Quantitati <0.80 index (0.00-0.79); RNP ANTIBODIES <0.2 AI (0.0-0.9); SJOGREN'S ANTI SS-A <0.2 AI (0.0-0.9); SJOGREN'S ANTI SS-B <0.2 AI (0.0-0.9); SMITH ANTIBODIES <0.2 AI (0.0-0.9)
== END ==
LOC: M LAB 16:36
PROVIDERS: ATTEND Orthopaedic Surgery
DX: M54.5 Low back pain (principal)

== ENCOUNTER → 2019-11-04 | Outpatient (CLI) | payer OTHER ==
[~2019-11-04] MED LIST changes: -ASPI81TA85 PO; +ASPI81TA86 PO
== END ==
LOC: M LABSMTC 08:12
PROVIDERS: ATTEND Orthopaedic Surgery
DX: Z03.818 Encounter for observation for suspected exposure to other biological agents ruled out (principal); Z11.59 Encounter for screening for other viral diseases

== ENCOUNTER → 2019-11-16 | Outpatient (CLI) | payer OTHER ==
[~2019-11-16] MED LIST changes: +ISOVUE-370 76% 100ML VIAL As Ordered ONE
== END ==
LOC: M RAD 10:48
PROVIDERS: ATTEND Nurse Practitioner Family
DX: R31.9 Hematuria, unspecified (principal)
CPT/HCPCS: 74178; Q9967

== ENCOUNTER → 2020-07-09 | Outpatient (CLI) | payer OTHER ==
[~2020-07-09] MED LIST changes: -CLIN150C14 PO; +CLIN150C15 PO; -ISOVUE-370 76% 100ML VIAL As Ordered ONE; +LISI10TA22 PO; -LISI10TA4 PO
--- NOTE | 2020-07-09 10:26 | REPPI ---
INDICATION: Z01.818 OTHER SPECIFIED PRE OPERATIVE EXAMINATION. COMPARISON: Comparison portable chest x-ray July 05, 2014. TECHNIQUE: Two views.. FINDINGS: The lungs are symmetrically aerated and free of infiltrate. The pleural angles are sharp. There is post thoracotomy change in the left posterior 7th rib which is a new finding compared with 2015 prior study. No other bony abnormality is seen. The thoracic aorta is tortuous and calcific. Heart is not enlarged. There are degenerative changes in the thoracic spine. There is a levoconvex lumbar curvature in the lumbar spine. IMPRESSION: No active cardiopulmonary disease. Postthoracotomy changes on the left.. <Electronically signed by Brodie Atwood > 07/09/20 [id number]
== END ==
LOC: M PLAIMG 08:57
PROVIDERS: ATTEND Internal Medicine
DX: Z01.818 Encounter for other preprocedural examination (principal)

== ENCOUNTER → 2020-07-09 | Outpatient (REF) | payer OTHER ==
[2020-07-09 11:22] LABS: AMYLASE 50 U/L (25-115); LIPASE 117 U/L (73-393)
== END ==
LOC: M SFHCPLAZ 08:57
PROVIDERS: ATTEND Internal Medicine
DX: K86.1 Other chronic pancreatitis (principal)

== ENCOUNTER 2020-08-30 07:08 | Emergency (ER) | payer OTHER ==
[~2020-08-30] VITALS: Ht 167.6 cm; Wt 82.3 kg
[2020-08-30] MEDS ORDERED: GABA600T4 (07:23)
[2020-08-30] MEDS ORDERED: ZOLO100T (07:23)
[2020-08-30] MEDS ORDERED: OXYMETAZOLINE 0.05% NASAL SPRAY (AFRIN) ONE (08:05)
[2020-08-30] MEDS ORDERED: ONDANSETRON 4MG/2ML VIAL IV ONE (08:05)
[2020-08-30] MEDS ORDERED: MORPHINE 2 MG/ML 1ML VIAL (J2270) IV PRN (08:05)
--- NOTE | 2020-08-30 08:07 | REP ---
INDICATION: fall. COMPARISON: Comparison brain CT study November 14, 2006.. TECHNIQUE: Helical scanning is acquired. 5 mm axial images were reformatted. Coronal MPR images were generated. There is mild motion artifact. FINDINGS: Bone window settings demonstrate an intact bony calvarium. There is no evidence of skull fracture or incidental bony calvarial lesion. The visualized paranasal sinuses appear clear. No intraorbital abnormality is seen. On soft tissue window setting images; the lateral, third, and fourth ventricles are normal in size and position. Goel-white differentiation pattern is normal above and below the tentorium. There are is no evidence of intracranial hemorrhage. No mass, edema, infarction, or midline shift is seen. No extra-axial fluid collection is appreciated. There is mild vascular calcification and minimal volume loss. IMPRESSION: Mild vascular calcification. No acute intracranial abnormality.. <Electronically signed by Brodie Atwood > 08/30/20 0803
--- NOTE | 2020-08-30 08:09 | REP ---
INDICATION: fall COMPARISON: 02/23/2019 TECHNIQUE: Axial noncontrast images from the skull base to the thoracic inlet with coronal and sagittal re-formations This CT examination was performed using the following dose reduction techniques: Automated exposure control, adjustment of mA and/or kv according to the patient's size, and use of iterative reconstruction technique. FINDINGS: Advanced multilevel degenerative changes include osteophytosis, endplate sclerosis, disc space narrowing, and facet hypertrophy. No evidence for acute fracture/compression injury or subluxation. Spinal canal is patent. Paravertebral soft tissues are within normal limits. IMPRESSION: Relatively stable advanced multilevel degenerative spondylosis. No acute fracture/compression injury or acute subluxation. <Electronically signed by Zaid Cueto > 08/30/20 [id number]
--- NOTE | 2020-08-30 08:10 | REPVR ---
PROCEDURE INFORMATION: Exam: CT Maxillofacial Without Contrast Exam date and time: 08/30/2020 7:25 AM Age: 69 years old Clinical indication: Injury or trauma; Fall; Blunt trauma (contusions or hematomas) TECHNIQUE: Imaging protocol: Computed tomography images of the face without contrast. Radiation optimization: All CT scans at this facility use at least one of these dose optimization techniques: automated exposure control; mA and/or kV adjustment per patient size (includes targeted exams where dose is matched to clinical indication); or iterative reconstruction. COMPARISON: No relevant prior studies available. FINDINGS: Orbital cavity: Orbits are normal. Globes are unremarkable. Bones/joints: There are displaced and comminuted nasal bone and bony nasal septal fractures. Paranasal sinuses: There is trace fluid within the maxillary and sphenoid sinuses. There is ethmoid mucosal thickening. Soft tissues: There is nasal soft tissue swelling. IMPRESSION: Comminuted nasal bone and bony nasal septal fractures. Electronically signed by: Angelica Larios On 08/30/2020 08:10:00 AM
[2020-08-30 08:11] LABS: BASO # 0.1 10^3/uL (0.0-0.2); BASO % 1.1 % (0.0-1.0); EOS # 0.3 10^3/uL (0.0-0.5); EOS % 4.8 % (0.0-3.0); HEMATOCRIT 47.8 % (36.0-47.0); HEMOGLOBIN 15.8 g/dl (12.0-15.5); LYMPH # 1.9 10^3/uL (1.5-5.0); LYMPH % 26.6 % (24.0-44.0); MEAN CORPUSCULAR HEMOGLOBIN 29.8 pg (27.0-33.0); MEAN CORPUSCULAR HGB CONC 33.1 g/dl (32.0-36.5); MEAN CORPUSCULAR VOLUME 90.2 fl (80.0-96.0); MONO # 0.6 10^3/uL (0.0-0.8); MONO % 8.9 % (2.0-8.0); NEUTROPHILS # 4.1 10^3/uL (1.5-8.5); NEUTROPHILS % 58.3 % (36.0-66.0); PLATELET COUNT, AUTOMATED 337 10^3/uL (150-450); WHITE BLOOD COUNT 7.1 10^3/uL (4.0-10.0)
--- NOTE | 2020-08-30 08:12 | REP ---
INDICATION: fall. COMPARISON: CT of the abdomen and pelvis dated 11/16/2019 TECHNIQUE: Axial noncontrast images of the lumbosacral spine from mid T12 through mid sacrum with coronal and sagittal reformations. This CT examination was performed using the following dose reduction techniques: Automated exposure control, adjustment of mA and/or kv according to the patient's size, and use of iterative reconstruction technique. FINDINGS: Advanced multilevel degenerative changes include osteophytosis, endplate sclerosis, disc space narrowing, and facet hypertrophy. Findings are essentially unchanged when compared with sagittal images from prior abdominal CT. There is no evidence for acute fracture/compression injury or subluxation. Chronic canal stenosis at L3-4 through L5-S1 is suspected with associated posterior disc bulges and chronic L5 retrolisthesis. Coronal images demonstrate chronic levoconvex scoliosis centered at L2-3 also unchanged. IMPRESSION: Advanced multilevel degenerative spondylosis essentially unchanged when compared to 11/16/2019. No evidence for acute fracture/compression injury or subluxation. <Electronically signed by Zaid Cueto > 08/30/20 0805
[2020-08-30] MEDS ORDERED: PERC5TAB12 PO (10:32)
[2020-08-30 10:48] VITALS: BP 158/79
== END 2020-08-30 10:50 | disposition home or self-care (01) ==
LOC: M ED 07:08
DX: S02.2XXA Fracture of nasal bones, initial encounter for closed fracture (principal); W01.198A Fall on same level from slipping, tripping and stumbling with subsequent striking against other object, initial encounter; Y92.9 Unspecified place or not applicable; Y93.9 Activity, unspecified; Y99.9 Unspecified external cause status; Z79.891 Long term (current) use of opiate analgesic; Z79.899 Other long term (current) drug therapy; Z88.0 Allergy status to penicillin; Z88.6 Allergy status to analgesic agent; Z88.8 Allergy status to other drugs, medicaments and biological substances
CPT/HCPCS: 70450; 70486; 72125; 72131; 85025; 96374; 96375; 99284; J2270; J2405

== ENCOUNTER 2020-09-16 11:33 | Emergency (ER) | payer OTHER ==
[~2020-09-16] VITALS: Ht 167.6 cm; Wt 81.8 kg
[~2020-09-16 11:33] MED LIST changes: +GABA600T4; +ZOLO100T
--- NOTE | 2020-09-16 13:43 | REP ---
INDICATION: r/o dvt COMPARISON: None. TECHNIQUE: Goel scale and color Doppler evaluation bilateral lower extremities using linear high frequency transducer. FINDINGS: Ultrasound examination of the right and left lower extremity deep venous structures from the common femoral vein to the popliteal vein demonstrates normal compressibility flow and wave patterns in response to respiration and augmentation. There is no evidence for deep venous thrombosis. IMPRESSION: No evidence for deep venous thrombosis. <Electronically signed by Zaid Cueto > 09/16/20 [id number]
[2020-09-16 15:19] VITALS: BP 131/73
[2020-09-16 16:02] LABS: BLOOD UREA NITROGEN 13 MG/DL (7-18); CALCIUM LEVEL 10.5 MG/DL (8.8-10.2); CARBON DIOXIDE LEVEL 28 MEQ/L (21-32); CHLORIDE LEVEL 106 MEQ/L (98-107); CREATININE FOR GFR 0.65 MG/DL (0.55-1.30); GLOMERULAR FILTRATION RATE > 60.0 (>45); GLUCOSE, FASTING 84 MG/DL (70-100); MAGNESIUM LEVEL 2.6 MG/DL (1.8-2.4); POTASSIUM SERUM 4.3 MEQ/L (3.5-5.1); SODIUM LEVEL 140 MEQ/L (136-145)
== END 2020-09-16 15:59 | disposition home or self-care (01) ==
LOC: M ED 11:33
DX: I70.211 Atherosclerosis of native arteries of extremities with intermittent claudication, right leg (principal); F33.9 Major depressive disorder, recurrent, unspecified; F41.9 Anxiety disorder, unspecified; Z88.0 Allergy status to penicillin; Z88.6 Allergy status to analgesic agent; Z79.899 Other long term (current) drug therapy

== ENCOUNTER → 2020-09-30 | Outpatient (CLI) | payer OTHER ==
--- NOTE | 2020-09-30 14:45 | REP ---
INDICATION: RT LEG PAIN COMPARISON: 09/16/2020. TECHNIQUE: Real time compression and duplex Doppler interrogation of the right lower extremity deep venous system is performed, including the left common femoral vein.Compression of the right peroneal and posterior tibial veins is performed. FINDINGS: The right common femoral, superficial femoral and popliteal veins are fully compressible with transducer pressure and demonstrate normal spontaneous and phasic flow, without evidence of deep venous thrombosis.The left common femoral vein demonstrates no thrombus.The visualized right peroneal and posterior tibial veins demonstrate no thrombus. IMPRESSION: No evidence of deep venous thrombosis of the right lower extremity femoral popliteal venous system.The visualized right peroneal and posterior tibial veins demonstrate no thrombus. <Electronically signed by Elvin Goel > 09/30/20 0037
== END ==
LOC: M RAD 14:03
PROVIDERS: ATTEND Nurse Practitioner Adult Health
DX: M79.604 Pain in right leg (principal)

== ENCOUNTER → 2020-11-22 | Outpatient (CLI) | payer OTHER ==
[2020-11-22 13:43] LABS: BASO # 0.1 10^3/uL (0.0-0.2); BASO % 1.2 % (0.0-1.0); EOS # 0.3 10^3/uL (0.0-0.5); EOS % 3.1 % (0.0-3.0); HEMATOCRIT 48.4 % (36.0-47.0); HEMOGLOBIN 15.8 g/dl (12.0-15.5); LYMPH % 34.7 % (24.0-44.0); MEAN CORPUSCULAR HEMOGLOBIN 29.5 pg (27.0-33.0); MEAN CORPUSCULAR HGB CONC 32.6 g/dl (32.0-36.5); MEAN CORPUSCULAR VOLUME 90.5 fl (80.0-96.0); MONO # 0.8 10^3/uL (0.0-0.8); MONO % 9.6 % (2.0-8.0); NEUTROPHILS # 4.4 10^3/uL (1.5-8.5); NEUTROPHILS % 51.2 % (36.0-66.0); PLATELET COUNT, AUTOMATED 317 10^3/uL (150-450); RED BLOOD COUNT 5.35 10^6/uL (4.00-5.40); WHITE BLOOD COUNT 8.6 10^3/uL (4.0-10.0)
[2020-11-22 13:52] LABS: INR 0.9; PARTIAL THROMBOPLASTIN TIME 30.7 SECONDS (25.9-37.0); PROTHROMBIN TIME 12.6 SECONDS (12.7-14.5)
[2020-11-22 14:03] LABS: BLOOD UREA NITROGEN 14 MG/DL (7-18); CALCIUM LEVEL 10.2 MG/DL (8.8-10.2); CARBON DIOXIDE LEVEL 30 MEQ/L (21-32); CHLORIDE LEVEL 104 MEQ/L (98-107); CREATININE FOR GFR 0.64 MG/DL (0.55-1.30); GLOMERULAR FILTRATION RATE > 60.0 (>45); GLUCOSE, FASTING 83 MG/DL (70-100); POTASSIUM SERUM 4.3 MEQ/L (3.5-5.1); SODIUM LEVEL 138 MEQ/L (136-145)
== END ==
LOC: M LAB 12:40
PROVIDERS: ATTEND Surgery Vascular Surgery
DX: I70.211 Atherosclerosis of native arteries of extremities with intermittent claudication, right leg (principal)

== ENCOUNTER → 2021-01-02 | Outpatient (CLI) | payer OTHER ==
[~2021-01-02] MED LIST changes: -CLIN150C15 PO; +CLIN150C17 PO
[2021-01-02 16:18] LABS: HEMATOCRIT 45.4 % (36.0-47.0); HEMOGLOBIN 14.7 g/dl (12.0-15.5); MEAN CORPUSCULAR HEMOGLOBIN 29.4 pg (27.0-33.0); MEAN CORPUSCULAR HGB CONC 32.4 g/dl (32.0-36.5); MEAN CORPUSCULAR VOLUME 90.8 fl (80.0-96.0); PLATELET COUNT, AUTOMATED 319 10^3/uL (150-450); WHITE BLOOD COUNT 7.2 10^3/uL (4.0-10.0)
[2021-01-02 16:36] LABS: BLOOD UREA NITROGEN 15 MG/DL (7-18); CALCIUM LEVEL 9.5 MG/DL (8.8-10.2); CARBON DIOXIDE LEVEL 28 MEQ/L (21-32); CHLORIDE LEVEL 108 MEQ/L (98-107); CREATININE FOR GFR 0.61 MG/DL (0.55-1.30); GLOMERULAR FILTRATION RATE > 60.0 (>45); GLUCOSE, FASTING 101 MG/DL (70-100); POTASSIUM SERUM 4.2 MEQ/L (3.5-5.1); SODIUM LEVEL 140 MEQ/L (136-145)
[2021-01-02 16:40] LABS: INR 0.95; PROTHROMBIN TIME 13.1 SECONDS (12.7-14.5)
[2021-01-02 17:49] LABS: ATYPICAL LYMPH 12 % (0-5); EOSINOPHILS 4 % (0-3); LYMPHOCYTES 28 % (16-44); MONOCYTES 10 % (0-5); NEUTROPHILS 46 % (28-66); PLATELET ESTIMATE NORMAL (NORMAL)
== END ==
LOC: M LAB 15:17
PROVIDERS: ATTEND Surgery Vascular Surgery
DX: Z01.818 Encounter for other preprocedural examination (principal); I70.211 Atherosclerosis of native arteries of extremities with intermittent claudication, right leg; D69.8 Other specified hemorrhagic conditions

== ENCOUNTER → 2021-01-03 | Outpatient (CLI) | payer OTHER ==
[~2021-01-03] MED LIST changes: +ISOVUE-370 76% 100ML VIAL As Ordered ONE
--- NOTE | 2021-01-03 14:40 | REP ---
INDICATION: I70.211 CLAUDICATION RT LEG. COMPARISON: None. TECHNIQUE: Helical scanning is acquired following the intravenous injection of 100 mL of Isovue 370. 3 mm axial images are re-formatted. Coronal and sagittal MPR and MIP images are generated. Curved MPR and 3D surface rendered images are provided. FINDINGS: There is good opacification of the arterial lumen. Some vascular calcification is seen in the aorta but it is normal in caliber. 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 The smaller artery arising just caudal to the larger 1 has high-grade stenosis. The celiac and superior mesenteric artery origins are unremarkable. The right renal artery is duplicated as well with a lower pole branch arising from the distal abdominal aorta without stenosis. Inferior mesenteric artery origin is unremarkable. The iliac arteries are patent but contain calcific plaquing. The right external iliac artery is widely patent. The right common femoral artery is unremarkable. Proximal profundal and superficial femoral arteries are patent. There is mild atherosclerotic plaquing in the proximal SFA. There is calcific plaquing in the adductor canal in the SFA. The right popliteal artery is of good caliber. There is a right popliteal artery stent in place which appears to be patent. Distal to the stent, the tibial-peroneal trunk is widely patent. There is 3 vessel calf runoff to the distal calf. The anterior and the posterior tibial arteries appear patent across the ankle. IMPRESSION: Multifocal calcific plaquing. Patent popliteal artery stent with three-vessel runoff in the calf. 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 <Electronically signed by Brodie Atwood > 01/03/21 [id number]
== END ==
LOC: M RAD 13:01
PROVIDERS: ATTEND Surgery Vascular Surgery
DX: I70.211 Atherosclerosis of native arteries of extremities with intermittent claudication, right leg (principal)
CPT/HCPCS: 73706; Q9967

== ENCOUNTER → 2021-03-10 | Outpatient (CLI) | payer OTHER ==
[~2021-03-10] MED LIST changes: -ISOVUE-370 76% 100ML VIAL As Ordered ONE
[2021-03-10 17:21] LABS: BLOOD UREA NITROGEN 14 MG/DL (7-18); CREATININE FOR GFR 0.65 MG/DL (0.55-1.30); GLOMERULAR FILTRATION RATE > 60.0 (>45)
== END ==
LOC: M LAB 16:25
PROVIDERS: ATTEND Surgery Vascular Surgery
DX: Z01.818 Encounter for other preprocedural examination (principal)

== ENCOUNTER → 2021-03-12 | Outpatient (CLI) | payer OTHER ==
[~2021-03-12] MED LIST changes: +ISOVUE-370 76% 100ML VIAL As Ordered ONE; +ISOVUE-M 300 61% 15ML VIAL As Ordered ONE
== END ==
LOC: M RAD 10:15
PROVIDERS: ATTEND Surgery Vascular Surgery
DX: I70.211 Atherosclerosis of native arteries of extremities with intermittent claudication, right leg (principal)
CPT/HCPCS: 75635; Q9967

== ENCOUNTER 2021-05-13 13:01 | Emergency (ER) | payer OTHER ==
[~2021-05-13] VITALS: Ht 167.6 cm; Wt 168.0 kg
[~2021-05-13 13:01] MED LIST changes: -ISOVUE-370 76% 100ML VIAL As Ordered ONE; -ISOVUE-M 300 61% 15ML VIAL As Ordered ONE
[2021-05-13] MEDS ORDERED: NITROGLYCERIN 0.4 MG SUBL TABLET SL PRN (13:25)
[2021-05-13 13:47] LABS: BASO # 0.1 10^3/uL (0.0-0.2); EOS # 0.3 10^3/uL (0.0-0.5); EOS % 2.6 % (0.0-3.0); HEMOGLOBIN 11.7 g/dl (12.0-15.5); LYMPH # 2.1 10^3/uL (1.5-5.0); MEAN CORPUSCULAR HEMOGLOBIN 29.3 pg (27.0-33.0); MEAN CORPUSCULAR HGB CONC 31.6 g/dl (32.0-36.5); MEAN CORPUSCULAR VOLUME 92.5 fl (80.0-96.0); MONO # 0.9 10^3/uL (0.0-0.8); PLATELET COUNT, AUTOMATED 582 10^3/uL (150-450); WHITE BLOOD COUNT 11.4 10^3/uL (4.0-10.0)
[2021-05-13 14:12] LABS: CK-MB VALUE MASS < 1.0 NG/ML (<3.6); CPK CREATINE PHOSPHOKINASE 26 U/L (26-192); MB/CK RELATIVE INDEX 3.85 (< OR =4)
[2021-05-13 14:17] LABS: ALBUMIN 3.3 GM/DL (3.2-5.2); ALT/SGPT 46 U/L (12-78); BILIRUBIN,DIRECT 0.2 MG/DL (0.0-0.2); BILIRUBIN,TOTAL 0.4 MG/DL (0.2-1.0); BLOOD UREA NITROGEN 15 MG/DL (7-18); CALCIUM LEVEL 9.8 MG/DL (8.8-10.2); CARBON DIOXIDE LEVEL 22 MEQ/L (21-32); CHLORIDE LEVEL 107 MEQ/L (98-107); CREATININE FOR GFR 0.71 MG/DL (0.55-1.30); GLOMERULAR FILTRATION RATE > 60.0 (>45); GLUCOSE, FASTING 101 MG/DL (70-100); LIPASE 159 U/L (73-393); NT-PRO BNP 609 PG/ML (<125); POTASSIUM SERUM 4.4 MEQ/L (3.5-5.1); SODIUM LEVEL 137 MEQ/L (136-145)
[2021-05-13] MEDS ORDERED: ISOVUE-370 76% 100ML VIAL As Ordered ONE (14:58)
[2021-05-13 15:00] LABS: CK-MB VALUE MASS < 1.0 NG/ML (<3.6); CPK CREATINE PHOSPHOKINASE 26 U/L (26-192); MB/CK RELATIVE INDEX 3.85 (< OR =4)
[2021-05-13] MEDS ORDERED: oxyBUTYnin 5 MG TAB PO STA (15:06)
[2021-05-13] MEDS ORDERED: PERCOCET 5MG/325MG TAB PO ONE (15:10)
[2021-05-13 16:40] VITALS: BP 138/82
[2021-05-13 16:59] LABS: CK-MB VALUE MASS < 1.0 NG/ML (<3.6); CPK CREATINE PHOSPHOKINASE 29 U/L (26-192); MB/CK RELATIVE INDEX 3.45 (< OR =4)
== END 2021-05-13 17:40 | disposition home or self-care (01) ==
LOC: M ED 13:01
DX: R07.89 Other chest pain (principal); R06.02 Shortness of breath; J91.8 Pleural effusion in other conditions classified elsewhere; R91.8 Other nonspecific abnormal finding of lung field; I25.10 Atherosclerotic heart disease of native coronary artery without angina pectoris; I11.9 Hypertensive heart disease without heart failure; E78.5 Hyperlipidemia, unspecified; K21.9 Gastro-esophageal reflux disease without esophagitis; Z95.1 Presence of aortocoronary bypass graft; Z88.0 Allergy status to penicillin; Z88.6 Allergy status to analgesic agent; Z79.899 Other long term (current) drug therapy
CPT/HCPCS: 36415; 71045; 71275; 80048; 80076; 82550; 82553; 83690; 83880; 84443; 84484; 85025; 93005; 93041; 94760; 99285; Q9967

== ENCOUNTER → 2021-05-21 | Outpatient (CLI) | payer OTHER, MEDICARE ==
[2021-05-21 11:59] LABS: HEMATOCRIT 40.1 % (36.0-47.0); HEMOGLOBIN 12.4 g/dl (12.0-15.5); MEAN CORPUSCULAR HEMOGLOBIN 28.8 pg (27.0-33.0); MEAN CORPUSCULAR HGB CONC 30.9 g/dl (32.0-36.5); PLATELET COUNT, AUTOMATED 466 10^3/uL (150-450); RED BLOOD COUNT 4.31 10^6/uL (4.00-5.40); WHITE BLOOD COUNT 9.2 10^3/uL (4.0-10.0)
[2021-05-21 12:08] LABS: INR 1.02; PROTHROMBIN TIME 13.8 SECONDS (12.7-14.5)
[2021-05-21 12:09] LABS: PARTIAL THROMBOPLASTIN TIME 32.4 SECONDS (25.9-37.0)
[2021-05-21 12:14] LABS: APPEARANCE, URINE TURBID (CLEAR); BACTERIA, URINE AUTO 1+ (NEGATIVE); BILIRUBIN, URINE AUTO NEGATIVE (NEGATIVE); BLOOD, URINE BLOOD 3+ (NEGATIVE); CALCIUM OXALATE CRYSTALS SMALL; COLOR, URINE YELLOW (YELLOW); GLUCOSE, URINE (UA) AUTO NEGATIVE (NEGATIVE); KETONE, URINE AUTO TRACE mg/dL (NEGATIVE); LEUKOCYTE ESTERASE, URINE AUTO 2+ (NEGATIVE); MUCUS, URINE MODERATE (NEGATIVE); NITRITE, URINE AUTO NEGATIVE (NEGATIVE); PROTEIN, URINE AUTO 2+ mg/dL (NEGATIVE); RBC, URINE AUTO TNTC /HPF (0-3); SPECIFIC GRAVITY URINE AUTO 1.018 (1.002-1.035); SQUAMOUS EPITHELIAL CELL UR AU 3 /HPF (0-6); UROBILINOGEN, URINE AUTO 0.2 mg/dL (0.0-2.0); WBC, URINE AUTO TNTC /HPF (0-3)
[2021-05-21 12:56] LABS: BLOOD UREA NITROGEN 12 MG/DL (7-18); CALCIUM LEVEL 9.9 MG/DL (8.8-10.2); CARBON DIOXIDE LEVEL 31 MEQ/L (21-32); CHLORIDE LEVEL 104 MEQ/L (98-107); CREATININE FOR GFR 0.86 MG/DL (0.55-1.30); GLOMERULAR FILTRATION RATE > 60.0 (>45); GLUCOSE, FASTING 100 MG/DL (70-100); POTASSIUM SERUM 4.3 MEQ/L (3.5-5.1); SODIUM LEVEL 138 MEQ/L (136-145)
== END ==
LOC: M LAB 10:53
PROVIDERS: ATTEND Urology
DX: N13.2 Hydronephrosis with renal and ureteral calculous obstruction (principal)

== ENCOUNTER → 2021-05-23 | Outpatient (CLI) | payer OTHER ==
[~2021-05-23] MED LIST changes: +ATOR40TA75 PO; +BACT800T5 PO; +CLOP75TA2 PO; +D31000TA2 PO; +DOCU100C16 PO; -GABA600T4; +GABA600T4 PO; +MAGN200T PO; +METO25TA4 PO; +OXYB5TAB10 PO; +VITMTA PO; -ZOLO100T; +ZOLO100T PO
== END ==
LOC: M LABSMTC 12:24
PROVIDERS: ATTEND Anesthesiology
DX: Z01.812 Encounter for preprocedural laboratory examination (principal); Z20.822 Contact with and (suspected) exposure to COVID-19

== ENCOUNTER 2021-05-28 08:52 | Day surgery (SDC) | payer OTHER ==
[~2021-05-28] VITALS: Ht 167.6 cm; Wt 76.2 kg
[~2021-05-28 08:52] MED LIST changes: +CIPROFLOXACIN 400 MG in IV 1 EA IV ONE; +LR 1,000 ML IV SCH
[2021-05-28] MEDS ORDERED: fentaNYL 100 MCG/2 ML INJECTION (J3010) As Ordered ONE (09:13)
[2021-05-28] MEDS ORDERED: ROCURONIUM BROMIDE 50 MG/5 ML VIAL As Ordered ONE (09:14)
[2021-05-28] MEDS ORDERED: MIDAZOLAM INJ 2MG/2ML VIAL (J2250 PER 1MG) As Ordered ONE (09:14)
[2021-05-28] MEDS ORDERED: propofoL 200 MG/20 ML VIAL As Ordered ONE (09:15)
[2021-05-28] MEDS ORDERED: LIDOCAINE 2% 100MG/5ML SDV (FOR ANES.) As Ordered ONE (09:15)
[2021-05-28] MEDS ORDERED: CONRAY-60 60% 50ML VIAL (Q9961) As Ordered ONE (09:54)
[2021-05-28] MEDS ORDERED: METOPROLOL 5 MG/5 ML VIAL As Ordered ONE (10:12)
[2021-05-28] MEDS ORDERED: ePHEDrine SULFATE 25 MG/5 ML(5MG/ML) SYRINGE As Ordered ONE (10:38)
[2021-05-28] MEDS ORDERED: CALCIUM CHLORIDE 10% 1 GM/10 ML SYR As Ordered ONE (10:38)
[2021-05-28] MEDS ORDERED: ESMOLOL INJ 100MG/10ML VIAL As Ordered ONE (10:40)
[2021-05-28] MEDS ORDERED: ONDANSETRON 4MG/2ML VIAL As Ordered ONE (10:55)
[2021-05-28] MEDS ORDERED: LR 1,000 ML IV SCH (11:35)
[2021-05-28] MEDS ORDERED: PERCOCET 5MG/325MG TAB PO PRN (11:35)
[2021-05-28] MEDS ORDERED: ONDANSETRON 4MG/2ML VIAL IV PRN (11:35)
[2021-05-28] MEDS ORDERED: oxyBUTYnin 5 MG TAB PO PRN (11:35)
[2021-05-28] MEDS ORDERED: oxyCODONE 5MG TAB PO PRN (11:35)
[2021-05-28] MEDS ORDERED: fentaNYL 100 MCG/2 ML INJECTION (J3010) IV PRN (11:35)
[2021-05-28] MEDS ORDERED: HYDROMORPHONE HCL 0.5 MG/ 0.5 ML SYRINGE (J1170 PER 1) IV PRN (11:35)
[2021-05-28 12:23] VITALS: BP 147/76
== END 2021-05-28 14:10 | disposition home or self-care (01) ==
LOC: M SDC 08:52
PROVIDERS: ATTEND Urology
DX: N20.2 Calculus of kidney with calculus of ureter (principal); E78.00 Pure hypercholesterolemia, unspecified; G47.30 Sleep apnea, unspecified; G61.81 Chronic inflammatory demyelinating polyneuritis; I10 Essential (primary) hypertension; I25.10 Atherosclerotic heart disease of native coronary artery without angina pectoris; I25.2 Old myocardial infarction; I73.9 Peripheral vascular disease, unspecified; K21.9 Gastro-esophageal reflux disease without esophagitis; Z79.899 Other long term (current) drug therapy; Z88.0 Allergy status to penicillin; Z88.5 Allergy status to narcotic agent; Z88.8 Allergy status to other drugs, medicaments and biological substances; Z91.09 Other allergy status, other than to drugs and biological substances
CPT/HCPCS: 52332; 52352; 74420; 82365; 88300; C1769; C1894; C2617; J0744; J2250; J2405; J3010; Q9961

== ENCOUNTER 2021-05-30 21:06 | Emergency (ER) | payer OTHER ==
[~2021-05-30] VITALS: Ht 167.6 cm; Wt 75.0 kg
[~2021-05-30 21:06] MED LIST changes: -CIPROFLOXACIN 400 MG in IV 1 EA IV ONE; -LR 1,000 ML IV SCH
[2021-05-30 21:07] VITALS: BP 158/78
== END 2021-05-30 21:29 | disposition left against medical advice (07) ==
LOC: M ED 21:06
DX: Z53.21 Procedure and treatment not carried out due to patient leaving prior to being seen by health care provider (principal)

== ENCOUNTER → 2021-12-11 | Outpatient (CLI) | payer OTHER ==
[~2021-12-11] MED LIST changes: -D31000TA2 PO; +VITA100093 PO
[2021-12-11 19:01] LABS: APPEARANCE, URINE MANUAL CLEAR (CLEAR); COLOR, URINE MANUAL YELLOW (YELLOW)
[2021-12-11 19:03] LABS: BILIRUBIN, URINE MANUAL NEGATIVE (NEGATIVE); BLOOD URINE MANUAL NEGATIVE (NEGATIVE); GLUCOSE, URINE (UA) MANUAL NEGATIVE (NEGATIVE); KETONE, URINE MANUAL NEGATIVE (NEGATIVE); LEUKOCYTE ESTERASE, URINE MAN TRACE (NEGATIVE); NITRITE, URINE MANUAL NEGATIVE (NEGATIVE); PROTEIN, URINE MANUAL NEGATIVE (NEGATIVE); UROBILINOGEN, URINE MANUAL NORMAL (NORMAL)
[2021-12-11 19:34] LABS: BACTERIA, URINE NONE SEEN; CALCIUM OXALATE CRYSTALS,URINE LARGE AMOUNT /hpf; HYALINE CAST, URINE NONE SEEN /lpf (0-1); MUCUS, URINE SMALL AMOUNT (NEGATIVE); RBC, URINE 0-1 /hpf (0-3); SQUAMOUS EPITHELIAL CELL URINE SMALL AMOUNT /hpf (SMALL AMT)
== END ==
LOC: M RAD 12:43
PROVIDERS: ATTEND Urology
DX: N20.0 Calculus of kidney (principal)

== ENCOUNTER → 2021-12-30 | Outpatient (CLI) | payer OTHER | LOC: M PLAIMG 14:30 | PROVIDERS: ATTEND Urology | DX: N20.0 Calculus of kidney (principal) ==

== ENCOUNTER → 2022-05-04 | Outpatient (CLI) | payer BC, MEDICARE, OTHER ==
[~2022-05-04] MED LIST changes: +ATOR1TAB19 PO; +BAYE81TA10 PO; +D3 S1CAP3 PO; +EQL50TAB2 PO; +FAMO1TAB11 PO; +MAGN250T7 PO; +SERT50TA29; +SERT50TA29 PO; +SUPETAB44 PO; +TYLE650T38 PO; +VITA100054 PO; +VITATAB73 PO
== END ==
LOC: M LABSMTC 11:54
PROVIDERS: ATTEND Anesthesiology
DX: Z01.812 Encounter for preprocedural laboratory examination (principal); Z20.822 Contact with and (suspected) exposure to COVID-19

== ENCOUNTER 2022-05-08 10:59 | Day surgery (SDC) | payer BC, MEDICARE ==
[~2022-05-08] VITALS: Ht 167.6 cm; Wt 85.2 kg
[~2022-05-08 10:59] MED LIST changes: -BAYE81TA10 PO; -D3 S1CAP3 PO; -MAGN250T7 PO; +NS 1,000 ML IV ONE; -SERT50TA29 PO; -SUPETAB44 PO; -VITA100054 PO; -VITATAB73 PO
[2022-05-08 14:25] VITALS: BP 167/84
[2022-07-21] MEDS ORDERED: MAGN250T7 PO (08:37)
[2022-07-21] MEDS ORDERED: SERT50TA29 PO (08:37)
[2022-07-21] MEDS ORDERED: BAYE81TA10 PO (08:37)
[2022-07-21] MEDS ORDERED: VITA100054 PO (08:37)
[2022-07-21] MEDS ORDERED: VITMTA PO (08:37)
[2022-07-21] MEDS ORDERED: VITATAB73 PO (08:37)
[2022-07-21] MEDS ORDERED: D3 S1CAP3 PO (12:00)
[2022-07-21] MEDS ORDERED: SUPETAB44 PO (12:07)
== END 2022-05-08 14:44 | disposition home or self-care (01) ==
LOC: M OPP 10:59
PROVIDERS: ATTEND Internal Medicine Gastroenterology
DX: Z12.11 Encounter for screening for malignant neoplasm of colon (principal); Z86.010 Personal history of colon polyps; Z80.0 Family history of malignant neoplasm of digestive organs; K64.8 Other hemorrhoids; K22.70 Barrett's esophagus without dysplasia; K22.89 Other specified disease of esophagus; K31.A14 Gastric intestinal metaplasia without dysplasia, involving the cardia; Z98.0 Intestinal bypass and anastomosis status; Z98.890 Other specified postprocedural states; Z88.0 Allergy status to penicillin; Z88.5 Allergy status to narcotic agent; Z91.048 Other nonmedicinal substance allergy status

== ENCOUNTER → 2022-06-15 | Outpatient (CLI) | payer BC, MEDICARE ==
[~2022-06-15] MED LIST changes: +ATOR1TAB19; -ATOR1TAB19 PO; +FAMO1TAB11; -FAMO1TAB11 PO; -NS 1,000 ML IV ONE
== END ==
LOC: M WHC 14:36
PROVIDERS: ATTEND Nurse Practitioner Adult Health
DX: N64.4 Mastodynia (principal); N63.11 Unspecified lump in the right breast, upper outer quadrant
CPT/HCPCS: 76642; 77066; G0279

== ENCOUNTER → 2022-06-23 | Outpatient (CLI) | payer BC ==
[~2022-06-23] MED LIST changes: +LIDOCAINE 1% MDV 20ML VIAL ONE
[2022-06-23 09:07] VITALS: BP 142/84
== END ==
LOC: M WHCPRO 07:48
PROVIDERS: ATTEND Nurse Practitioner Adult Health
DX: C50.411 Malignant neoplasm of upper-outer quadrant of right female breast (principal); R92.8 Other abnormal and inconclusive findings on diagnostic imaging of breast; N63.11 Unspecified lump in the right breast, upper outer quadrant

== ENCOUNTER → 2022-07-02 | Outpatient (CLI) | payer BC, MEDICARE ==
[~2022-07-02] MED LIST changes: -LIDOCAINE 1% MDV 20ML VIAL ONE
[2022-07-02 14:40] LABS: BLOOD UREA NITROGEN 18 MG/DL (9-23); CALCIUM LEVEL 9.5 MG/DL (8.3-10.6); CARBON DIOXIDE LEVEL 30 MMOL/L (20-31); CHLORIDE LEVEL 105 MMOL/L (98-107); CREATININE FOR GFR 0.68 MG/DL (0.55-1.30); GLOMERULAR FILTRATION RATE > 60.0 (>45); GLUCOSE, FASTING 80 MG/DL (74-106); POTASSIUM SERUM 5.2 MMOL/L (3.5-5.1); SODIUM LEVEL 138 MMOL/L (136-145)
== END ==
LOC: M PLALAB 09:19
PROVIDERS: ATTEND Surgery
DX: C50.911 Malignant neoplasm of unspecified site of right female breast (principal)

== ENCOUNTER → 2022-07-03 | Outpatient (CLI) | payer BC, MEDICARE | LOC: M RAD 10:08 | PROVIDERS: ATTEND Surgery | DX: C50.911 Malignant neoplasm of unspecified site of right female breast (principal) | CPT/HCPCS: 78306; A9503 ==

== ENCOUNTER → 2022-07-06 | Outpatient (CLI) | payer BC ==
[~2022-07-06] MED LIST changes: +PROHANCE 279.3MG/ML 15ML VIAL As Ordered ONE; +PROHANCE 279.3MG/ML 5ML VIAL As Ordered ONE
== END ==
LOC: M RAD 13:46
PROVIDERS: ATTEND Surgery
DX: C50.911 Malignant neoplasm of unspecified site of right female breast (principal)
CPT/HCPCS: A9576; C8908

== ENCOUNTER → 2022-07-14 | Outpatient (CLI) | payer BC ==
[~2022-07-14] MED LIST changes: +**SFHN** LIDOCAINE 1% MDV 20ML VIAL ONE; +**SFHN** SODIUM BICARBONATE 8.4% 10MEQ 10ML VIAL ONE; -PROHANCE 279.3MG/ML 15ML VIAL As Ordered ONE; -PROHANCE 279.3MG/ML 5ML VIAL As Ordered ONE
[2022-07-14 11:52] VITALS: BP 128/92
== END ==
LOC: M WHCPRO 10:00
PROVIDERS: ATTEND Surgery
DX: C50.911 Malignant neoplasm of unspecified site of right female breast (principal)
CPT/HCPCS: 10035; 77065; A4648

== ENCOUNTER → 2022-07-23 | Outpatient (CLI) | payer BC, MEDICARE ==
[~2022-07-23] MED LIST changes: -**SFHN** LIDOCAINE 1% MDV 20ML VIAL ONE; -**SFHN** SODIUM BICARBONATE 8.4% 10MEQ 10ML VIAL ONE; -ATOR1TAB19; +ATOR1TAB19 PO; +BAYE81TA10 PO; +D3 S1CAP3 PO; -FAMO1TAB11; +FAMO1TAB11 PO; +MAGN250T7 PO; +SERT50TA29 PO; +SUPETAB44 PO; +VITA100054 PO; +VITATAB73 PO
== END ==
LOC: M LABSMTC 08:01
PROVIDERS: ATTEND Anesthesiology
DX: Z01.818 Encounter for other preprocedural examination (principal); Z11.52 Encounter for screening for COVID-19

== ENCOUNTER → 2022-07-24 | Outpatient (CLI) | payer BC ==
[2022-07-24 17:45] LABS: BASO # 0.1 10^3/uL (0.0-0.2); EOS # 0.5 10^3/uL (0.0-0.5); EOS % 5.6 % (0.0-3.0); HEMATOCRIT 48.3 % (36.0-47.0); HEMOGLOBIN 16.1 g/dl (12.0-15.5); LYMPH # 2.9 10^3/uL (1.5-5.0); LYMPH % 35.6 % (24.0-44.0); MEAN CORPUSCULAR HEMOGLOBIN 30.8 pg (27.0-33.0); MEAN CORPUSCULAR HGB CONC 33.3 g/dl (32.0-36.5); MEAN CORPUSCULAR VOLUME 92.5 fl (80.0-96.0); MONO # 0.9 10^3/uL (0.0-0.8); MONO % 10.8 % (2.0-8.0); NEUTROPHILS # 3.7 10^3/uL (1.5-8.5); NEUTROPHILS % 46.7 % (36.0-66.0); PLATELET COUNT, AUTOMATED 315 10^3/uL (150-450); RED BLOOD COUNT 5.22 10^6/uL (4.00-5.40)
[2022-07-24 18:26] LABS: ALBUMIN 4.2 G/DL (3.2-5.2); ALKALINE PHOSPHATASE 108 U/L (46-116); ALT/SGPT 38 U/L (7.0-40); AST/SGOT 31 U/L (<34); BILIRUBIN,TOTAL 0.5 MG/DL (0.3-1.2); BLOOD UREA NITROGEN 12 MG/DL (9-23); CARBON DIOXIDE LEVEL 29 MMOL/L (20-31); CHLORIDE LEVEL 105 MMOL/L (98-107); CREATININE FOR GFR 0.65 MG/DL (0.55-1.30); GLOMERULAR FILTRATION RATE > 60.0 (>45); GLUCOSE, FASTING 82 MG/DL (74-106); MAGNESIUM LEVEL 2.2 MG/DL (1.8-2.4); POTASSIUM SERUM 4.4 MMOL/L (3.5-5.1); SODIUM LEVEL 140 MMOL/L (136-145); THYROID STIMULATING HORMONE 5.104 uIU/ML (0.55-4.78); TOTAL PROTEIN 7.3 G/DL (5.7-8.2)
[2022-07-24 18:27] LABS: FREE T4 0.84 NG/DL (0.89-1.76)
== END ==
LOC: M PLAIMG 16:06
PROVIDERS: ATTEND Family Medicine
DX: I25.10 Atherosclerotic heart disease of native coronary artery without angina pectoris (principal)

== ENCOUNTER 2022-07-28 06:27 | Day surgery (SDC) | payer BC ==
[~2022-07-28] VITALS: Ht 167.6 cm; Wt 83.9 kg
[2022-07-28] MEDS ORDERED: LR 1,000 ML IV SCH (07:45)
[2022-07-28] MEDS ORDERED: HEPARIN SOD (PORCINE) 5000UNITS/ML 1ML VIAL/SYRINGE SQ ONE (07:50)
[2022-07-28] MEDS ORDERED: CLINDAMYCIN 900 MG in IV 1 EA IV ONE (07:50)
[2022-07-28] MEDS ORDERED: LIDOCAINE 2% 100MG/5ML SDV (FOR ANES.) As Ordered ONE (08:09)
[2022-07-28] MEDS ORDERED: ROCURONIUM BROMIDE 50MG/5ML VIAL As Ordered ONE ×2 (08:09→11:48)
[2022-07-28] MEDS ORDERED: propofoL 200 MG/20 ML VIAL As Ordered ONE (08:09)
[2022-07-28] MEDS ORDERED: SUGAMMADEX SODIUM 500 MG/5 ML VIAL (BRIDION) As Ordered ONE (08:09)
[2022-07-28] MEDS ORDERED: ONDANSETRON 4MG 2ML VIAL As Ordered ONE (08:11)
[2022-07-28] MEDS ORDERED: fentaNYL 100 MCG/2 ML INJECTION As Ordered ONE ×2 (09:31→11:21)
[2022-07-28] MEDS ORDERED: MIDAZOLAM INJ 2MG/2ML VIAL As Ordered ONE (09:32)
[2022-07-28] MEDS ORDERED: LIDOCAINE 1% SDV 30ML VIAL As Ordered ONE (10:11)
[2022-07-28] MEDS ORDERED: BUPIVACAINE HCL 0.25% 30ML VIAL As Ordered ONE (10:11)
[2022-07-28] MEDS ORDERED: ACETAMINOPHEN 1000MG 100ML IV BAG As Ordered ONE (10:43)
[2022-07-28] MEDS ORDERED: HYDROmorphone HCL 2MG/ML 1ML VIAL As Ordered ONE (11:53)
[2022-07-28] MEDS ORDERED: ESMOLOL INJ 100MG/10ML VIAL As Ordered ONE (12:36)
[2022-07-28] MEDS ORDERED: TRAM50TA2 PO (15:20)
[2022-07-28] MEDS ORDERED: fentaNYL 100 MCG/2 ML INJECTION IV PRN (15:30)
[2022-07-28] MEDS ORDERED: ONDANSETRON 4MG 2ML VIAL IV PRN (15:30)
[2022-07-28] MEDS ORDERED: MORPHINE 2 MG/ML 1ML VIAL IV PRN (15:30)
[2022-07-28] MEDS ORDERED: oxyCODONE 5MG TAB PO PRN (15:30)
[2022-07-28 17:30] VITALS: BP 147/75
== END 2022-07-28 17:42 | disposition home or self-care (01) ==
LOC: M SDC 06:27
PROVIDERS: ATTEND Surgery
DX: C50.911 Malignant neoplasm of unspecified site of right female breast (principal); Z17.0 Estrogen receptor positive status [ER+]; Z80.3 Family history of malignant neoplasm of breast; Z79.01 Long term (current) use of anticoagulants; Z86.79 Personal history of other diseases of the circulatory system; Z95.1 Presence of aortocoronary bypass graft; Z87.891 Personal history of nicotine dependence; Z88.0 Allergy status to penicillin; Z88.5 Allergy status to narcotic agent; Z88.8 Allergy status to other drugs, medicaments and biological substances
CPT/HCPCS: 19125; 36415; 38525; 76942; 78195; 86850; 86900; 86901; A4648; A9520; J0131; J1100; J1170; J2250; J2405; J3010; S0020

== ENCOUNTER → 2022-08-13 | Outpatient (CLI) | payer BC | LOC: M ONCR 14:22 | PROVIDERS: ATTEND General Practice | DX: C50.411 Malignant neoplasm of upper-outer quadrant of right female breast (principal); G47.33 Obstructive sleep apnea (adult) (pediatric); I10 Essential (primary) hypertension; K21.9 Gastro-esophageal reflux disease without esophagitis; Z79.02 Long term (current) use of antithrombotics/antiplatelets; Z79.82 Long term (current) use of aspirin; Z79.899 Other long term (current) drug therapy; Z80.0 Family history of malignant neoplasm of digestive organs; Z80.3 Family history of malignant neoplasm of breast; Z86.79 Personal history of other diseases of the circulatory system; Z87.442 Personal history of urinary calculi; Z87.891 Personal history of nicotine dependence; Z88.0 Allergy status to penicillin; Z88.5 Allergy status to narcotic agent; Z88.8 Allergy status to other drugs, medicaments and biological substances; Z91.048 Other nonmedicinal substance allergy status; Z98.890 Other specified postprocedural states ==

== ENCOUNTER 2022-08-21 08:38 | Outpatient (RCR) | payer BC ==
[2022-08-21] MEDS ORDERED: ATOR40TA75 PO (09:24)
[2022-08-21] MEDS ORDERED: LETR2.5T2 PO (10:00)
[2022-08-24] MEDS ORDERED: LETR2.5T2 PO (11:39)
== END 2022-08-23 ==
LOC: M ONCR 08:38
PROVIDERS: ATTEND General Practice
DX: Z01.89 Encounter for other specified special examinations (principal); L76.34 Postprocedural seroma of skin and subcutaneous tissue following other procedure; C50.411 Malignant neoplasm of upper-outer quadrant of right female breast

== ENCOUNTER → 2022-09-01 | Outpatient (CLI) | payer BC ==
[~2022-09-01] MED LIST changes: +LETR2.5T2 PO
== END ==
LOC: M WHC 13:57
PROVIDERS: ATTEND Internal Medicine Medical Oncology
DX: Z13.820 Encounter for screening for osteoporosis (principal)

== ENCOUNTER 2022-09-14 13:52 | Outpatient (RCR) | payer BC, MEDICARE | END 2022-09-23 | LOC: M ONCR 13:52 | PROVIDERS: ATTEND General Practice | DX: C50.411 Malignant neoplasm of upper-outer quadrant of right female breast (principal) ==

== ENCOUNTER 2022-10-02 14:55 | Outpatient (RCR) | payer BC | END 2022-10-23 | LOC: M ONCR 14:55 | PROVIDERS: ATTEND General Practice | DX: Z51.0 Encounter for antineoplastic radiation therapy (principal); C50.411 Malignant neoplasm of upper-outer quadrant of right female breast ==

== ENCOUNTER → 2022-11-20 | Outpatient (CLI) | payer BC, MEDICARE ==
[~2022-11-20] MED LIST changes: +BUSP10TA PO
== END ==
LOC: M RAD 16:12
PROVIDERS: ATTEND Internal Medicine Medical Oncology
DX: C50.911 Malignant neoplasm of unspecified site of right female breast (principal)

== ENCOUNTER → 2023-05-31 | Outpatient (CLI) | payer BC, MEDICARE ==
[~2023-05-31] MED LIST changes: -OXYB5TAB10 PO; +OXYB5TAB11 PO; +PRED20TA PO
== END ==
LOC: M PLAIMG 14:44
PROVIDERS: ATTEND Urology
DX: N20.0 Calculus of kidney (principal)

== ENCOUNTER → 2023-06-07 | Outpatient (REF) | payer BC, MEDICARE ==
[2023-06-07 18:57] LABS: APPEARANCE, URINE CLOUDY (CLEAR); BACTERIA, URINE AUTO NEGATIVE (NEGATIVE); BILIRUBIN, URINE AUTO NEGATIVE (NEGATIVE); BLOOD, URINE BLOOD 3+ (NEGATIVE); CALCIUM OXALATE CRYSTALS LARGE; COLOR, URINE AMBER (YELLOW); GLUCOSE, URINE (UA) AUTO NEGATIVE (NEGATIVE); KETONE, URINE AUTO NEGATIVE (NEGATIVE); LEUKOCYTE ESTERASE, URINE AUTO 1+ (NEGATIVE); MUCUS, URINE SMALL (NEGATIVE); NITRITE, URINE AUTO NEGATIVE (NEGATIVE); PROTEIN, URINE AUTO 1+ mg/dL (NEGATIVE); RBC, URINE AUTO TNTC /HPF (0-3); SPECIFIC GRAVITY URINE AUTO 1.015 (1.002-1.035); SQUAMOUS EPITHELIAL CELL UR AU 1 /HPF (0-6); UROBILINOGEN, URINE AUTO 0.2 mg/dL (0.0-2.0); WBC, URINE AUTO 64 /HPF (0-3)
== END ==
LOC: M SMT 17:10
PROVIDERS: ATTEND Urology
DX: N39.0 Urinary tract infection, site not specified (principal)

== ENCOUNTER → 2023-06-22 | Outpatient (CLI) | payer BC, MEDICARE ==
[~2023-06-22] MED LIST changes: -OXYB5TAB11 PO; +OXYB5TAB14 PO
== END ==
LOC: M WHC 13:06
PROVIDERS: ATTEND Nurse Practitioner Adult Health
DX: Z12.31 Encounter for screening mammogram for malignant neoplasm of breast (principal); Z85.3 Personal history of malignant neoplasm of breast
CPT/HCPCS: 77066; G0279

== ENCOUNTER → 2023-07-01 | Outpatient (CLI) | payer BC, MEDICARE | LOC: M RAD 06-30 12:31 | PROVIDERS: ATTEND Urology | DX: N20.0 Calculus of kidney (principal) ==

== ENCOUNTER → 2023-07-30 | Outpatient (REF) | payer BC, MEDICARE ==
[2023-07-30 15:30] LABS: AMORPHOUS SEDIMENT SMALL (NEGATIVE); APPEARANCE, URINE CLOUDY (CLEAR); BACTERIA, URINE AUTO NEGATIVE (NEGATIVE); BILIRUBIN, URINE AUTO NEGATIVE (NEGATIVE); BLOOD, URINE BLOOD 3+ (NEGATIVE); COLOR, URINE YELLOW (YELLOW); GLUCOSE, URINE (UA) AUTO NEGATIVE (NEGATIVE); KETONE, URINE AUTO NEGATIVE (NEGATIVE); LEUKOCYTE ESTERASE, URINE AUTO NEGATIVE (NEGATIVE); MUCUS, URINE SMALL (NEGATIVE); NITRITE, URINE AUTO NEGATIVE (NEGATIVE); PROTEIN, URINE AUTO NEGATIVE (NEGATIVE); RBC, URINE AUTO TNTC /HPF (0-3); SPECIFIC GRAVITY URINE AUTO 1.011 (1.002-1.035); SQUAMOUS EPITHELIAL CELL UR AU 0 /HPF (0-6); UROBILINOGEN, URINE AUTO 0.2 mg/dL (0.0-2.0); WBC, URINE AUTO 0 /HPF (0-3)
== END ==
LOC: M SMT 15:02
PROVIDERS: ATTEND Urology
DX: N23 Unspecified renal colic (principal)

== ENCOUNTER → 2023-08-10 | Outpatient (CLI) | payer BC ==
[~2023-08-10] MED LIST changes: +OXYC1TAB23 PO; +TAMS1CAP17 PO
[2023-08-10 08:21] LABS: BASO # 0.1 10^3/uL (0.0-0.2); BASO % 1.4 % (0.0-1.0); EOS # 0.4 10^3/uL (0.0-0.5); HEMATOCRIT 46.7 % (36.0-47.0); HEMOGLOBIN 15.2 g/dl (12.0-15.5); LYMPH # 1.4 10^3/uL (1.5-5.0); LYMPH % 19.3 % (24.0-44.0); MEAN CORPUSCULAR HEMOGLOBIN 29.4 pg (27.0-33.0); MEAN CORPUSCULAR HGB CONC 32.5 g/dl (32.0-36.5); MEAN CORPUSCULAR VOLUME 90.3 fl (80.0-96.0); MONO # 0.7 10^3/uL (0.0-0.8); NEUTROPHILS # 4.4 10^3/uL (1.5-8.5); PLATELET COUNT, AUTOMATED 298 10^3/uL (150-450); RED BLOOD COUNT 5.17 10^6/uL (4.00-5.40)
[2023-08-10 08:35] LABS: HEMOGLOBIN A1c 5.8 % (4.0-6.0)
[2023-08-10 08:49] LABS: ALBUMIN 3.4 G/DL (3.2-5.2); ALKALINE PHOSPHATASE 119 U/L (46-116); ALT/SGPT 29 U/L (7.0-40); AST/SGOT 23 U/L (<34); BILIRUBIN,TOTAL 0.5 MG/DL (0.3-1.2); BLOOD UREA NITROGEN 17 MG/DL (9-23); CALCIUM LEVEL 10.2 MG/DL (8.3-10.6); CARBON DIOXIDE LEVEL 30 MMOL/L (20-31); CHLORIDE LEVEL 110 MMOL/L (98-107); CHOLESTEROL LEVEL 141 MG/DL (<200); CHOLESTEROL RISK RATIO 2.73 (<5); CREATININE FOR GFR 0.75 MG/DL (0.55-1.30); GLOMERULAR FILTRATION RATE > 60.0 (>39); GLUCOSE, FASTING 107 MG/DL (74-106); HDL CHOLESTEROL 51.5 MG/DL (>40); LDL CHOLESTEROL 56.1 MG/DL (<100); MAGNESIUM LEVEL 2.2 MG/DL (1.8-2.4); NON-HDL-C 89.5 MG/DL; POTASSIUM SERUM 4.3 MMOL/L (3.5-5.1); SODIUM LEVEL 144 MMOL/L (136-145); TOTAL PROTEIN 6.7 G/DL (5.7-8.2); TRIGLYCERIDES LEVEL 167 MG/DL (<150)
[2023-08-10 08:50] LABS: FERRITIN 37.4 NG/ML (7.3-270.7)
== END ==
LOC: M LAB 07:51
PROVIDERS: ATTEND Nurse Practitioner Adult Health
DX: I25.10 Atherosclerotic heart disease of native coronary artery without angina pectoris (principal); R73.09 Other abnormal glucose; E78.00 Pure hypercholesterolemia, unspecified; R79.89 Other specified abnormal findings of blood chemistry

== ENCOUNTER → 2023-08-10 | Outpatient (CLI) | payer BC | LOC: M PLAIMG 09:08 | PROVIDERS: ATTEND Urology | DX: N23 Unspecified renal colic (principal); N20.2 Calculus of kidney with calculus of ureter; N13.30 Unspecified hydronephrosis ==

== ENCOUNTER → 2023-08-12 | Outpatient (CLI) | payer BC | LOC: M RAD 12:24 | PROVIDERS: ATTEND Urology | DX: Z01.818 Encounter for other preprocedural examination (principal); N20.0 Calculus of kidney ==

== ENCOUNTER → 2023-08-13 | Day surgery (SDC) | payer BC ==
[~2023-08-13] VITALS: Ht 167.6 cm; Wt 84.2 kg
[~2023-08-13] MED LIST changes: +ACETAMINOPHEN 1000MG 100ML IV BAG As Ordered ONE; +ISOVUE-300 61% 100ML VIAL As Ordered ONE; +LIDOCAINE 1% SDV 5ML VIAL SC PRN; +LIDOCAINE 2% 100MG/5ML SDV (FOR ANES.) As Ordered ONE; +LR 1,000 ML IV SCH; +MIDAZOLAM INJ 2MG/2ML VIAL As Ordered ONE; +ONDANSETRON 4MG 2ML VIAL As Ordered ONE; +PHENYLephrine 500MCG 5ML (100MCG/ML) SYRINGE As Ordered ONE; +ePHEDrine SULFATE 25 MG/5 ML(5MG/ML) SYRINGE As Ordered ONE; +fentaNYL 100 MCG/2 ML INJECTION As Ordered ONE; +fentaNYL 100 MCG/2 ML INJECTION IV PRN; +oxyBUTYnin 5 MG TAB PO PRN; +propofoL 200 MG/20 ML VIAL As Ordered ONE; +traMADol 50 MG TAB PO ONE
[2023-08-13] MEDS: LR 1,000 ML IV SCH (11:47)
[2023-08-13] MEDS: LevoFLOXacin IV 500 MG in IV 1 EA IV ONE (12:50)
[2023-08-13] MEDS: ONDANSETRON 4MG 2ML VIAL IV PRN (14:11)
[2023-08-13] MEDS: PERCOCET 5MG/325MG TAB PO PRN (14:18)
[2023-08-13 15:10] VITALS: TEMP 97.5; O2SAT 96
[2023-08-13 15:36] VITALS: BP 160/60
== END | disposition home or self-care (01) ==
LOC: M SDC 11:04
PROVIDERS: ATTEND Urology
DX: N13.2 Hydronephrosis with renal and ureteral calculous obstruction (principal); I25.10 Atherosclerotic heart disease of native coronary artery without angina pectoris; I10 Essential (primary) hypertension; I25.2 Old myocardial infarction; E78.00 Pure hypercholesterolemia, unspecified; Z95.1 Presence of aortocoronary bypass graft; Z79.82 Long term (current) use of aspirin; Z79.899 Other long term (current) drug therapy; Z79.891 Long term (current) use of opiate analgesic; Z85.3 Personal history of malignant neoplasm of breast; Z92.21 Personal history of antineoplastic chemotherapy; Z92.3 Personal history of irradiation; G47.30 Sleep apnea, unspecified; Z90.711 Acquired absence of uterus with remaining cervical stump
CPT/HCPCS: 52356; 76000; 82365; C1769; C1894; C2617; J0131; J1100; J1956; J2250; J2371; J2405; J3010; Q9967

== ENCOUNTER → 2024-06-20 | Outpatient (CLI) | payer BC ==
[~2024-06-20] MED LIST changes: -ACETAMINOPHEN 1000MG 100ML IV BAG As Ordered ONE; -CYCL5TAB PO; +CYCL5TAB4 PO; +GABA-1490 PO; -GABA600T4 PO; -ISOVUE-300 61% 100ML VIAL As Ordered ONE; -LIDOCAINE 1% SDV 5ML VIAL SC PRN; -LIDOCAINE 2% 100MG/5ML SDV (FOR ANES.) As Ordered ONE; -LR 1,000 ML IV SCH; -MIDAZOLAM INJ 2MG/2ML VIAL As Ordered ONE; +OMEG10005 PO; -ONDANSETRON 4MG 2ML VIAL As Ordered ONE; -PHENYLephrine 500MCG 5ML (100MCG/ML) SYRINGE As Ordered ONE; -ePHEDrine SULFATE 25 MG/5 ML(5MG/ML) SYRINGE As Ordered ONE; -fentaNYL 100 MCG/2 ML INJECTION As Ordered ONE; -fentaNYL 100 MCG/2 ML INJECTION IV PRN; -oxyBUTYnin 5 MG TAB PO PRN; -propofoL 200 MG/20 ML VIAL As Ordered ONE; -traMADol 50 MG TAB PO ONE
== END ==
LOC: M WUC 11:56
PROVIDERS: ATTEND Nurse Practitioner Family
DX: M17.11 Unilateral primary osteoarthritis, right knee (principal)

== ENCOUNTER → 2024-06-26 | Outpatient (CLI) | payer BC | LOC: M WHC 09:58 | PROVIDERS: ATTEND Dietitian, Registered | DX: Z12.31 Encounter for screening mammogram for malignant neoplasm of breast (principal); Z85.3 Personal history of malignant neoplasm of breast; R92.313 Mammographic fatty tissue density, bilateral breasts; N99.842 Postprocedural seroma of a genitourinary system organ or structure following a genitourinary system procedure | CPT/HCPCS: 77066; G0279 ==

== ENCOUNTER → 2024-06-29 | Outpatient (CLI) | payer BC | LOC: M SOG 07:55 | PROVIDERS: ATTEND Orthopaedic Surgery | DX: M25.561 Pain in right knee (principal) ==

== ENCOUNTER 2024-11-11 21:07 | Emergency (ER) | payer BC ==
[~2024-11-11] VITALS: Ht 167.6 cm; Wt 79.5 kg
[2024-11-11] MEDS: NS (Normal Saline) 0.9% 1,000 ML IV ONE (10:00)
[~2024-11-11 21:07] MED LIST changes: +CHOL25CA2 PO; -EQL50TAB2 PO; -FLOM0.4C39 PO; +PRAV20TA78 PO; +TAMS-18 PO; -VITA100054 PO; +VITA1TAB82 PO
[2024-11-11] MEDS: ONDANSETRON 4MG 2ML VIAL IV ONE (22:26)
[2024-11-11 22:54] LABS: BASO # 0.1 10^3/uL (0.0-0.2); BASO % 0.7 % (0.0-1.0); EOS # 0.3 10^3/uL (0.0-0.5); EOS % 2.7 % (0.0-3.0); LYMPH # 2.3 10^3/uL (1.5-5.0); LYMPH % 18.9 % (24.0-44.0); MONO # 1.2 10^3/uL (0.0-0.8); MONO % 9.5 % (2.0-8.0); NEUTROPHILS # 8.2 10^3/uL (1.5-8.5); NEUTROPHILS % 68.0 % (36.0-66.0); PLATELET COUNT, AUTOMATED 342 10^3/uL (150-450)
[2024-11-11 23:17] LABS: ALT/SGPT 35 U/L (7.0-40); AST/SGOT 41 U/L (<34); CALCIUM LEVEL 11.1 MG/DL (8.3-10.6); CARBON DIOXIDE LEVEL 23 MMOL/L (20-31); CHLORIDE LEVEL 104 MMOL/L (98-107); CREATININE FOR GFR 0.96 MG/DL (0.55-1.30); GLOMERULAR FILTRATION RATE 62.9 (>39); POTASSIUM SERUM 3.9 MMOL/L (3.5-5.1); SODIUM LEVEL 145 MMOL/L (136-145)
[2024-11-11] MEDS: HYDROMORPHONE HCL 0.5 MG/0.5 ML SYRINGE IV STA (23:32)
[2024-11-12] MEDS: ONDANSETRON 4MG 2ML VIAL IV ONE (00:20)
[2024-11-12] MEDS: NS (Normal Saline) 0.9% 1,000 ML IV ONE (01:14)
[2024-11-12 02:47] LABS: KETONE, URINE AUTO RFX 1+ mg/dL (NEGATIVE); LEUKOCYTE ESTERASE UR AUTO RFX NEGATIVE (NEGATIVE); MUCUS, URINE RFX SMALL (NEGATIVE); NITRITE, URINE AUTO RFX NEGATIVE (NEGATIVE); RBC, URINE AUTO RFX TNTC /HPF (0-3); SQUAM EPITHELIAL CELL UR AURFX 0 /HPF (0-6); TRANSITIONAL EPITHELIAL AU RFX <1 /HPF; WBC, URINE AUTO RFX 1 /HPF (0-3)
[2024-11-12] MEDS: HYDROMORPHONE HCL 0.5 MG/0.5 ML SYRINGE IV STA (03:08)
[2024-11-12] MEDS: KETOROLAC 30 MG/ML 1 ML VIAL IV ONE (05:12)
[2024-11-12] MEDS: TAMSULOSIN 0.4 MG CAP PO ONE (05:14)
[2024-11-12] MEDS ORDERED: ACET-897 PO (06:56)
[2024-11-12] MEDS ORDERED: ONDA-282 PO (06:56)
[2024-11-12] MEDS ORDERED: NAPR-885 PO (06:56)
[2024-11-12] MEDS ORDERED: TAMS-18 PO (06:56)
[2024-11-12 07:20] VITALS: BP 112/56; TEMP 97.5; O2SAT 95
== END 2024-11-12 07:33 | disposition home or self-care (01) ==
LOC: M ED 21:07
DX: N20.0 Calculus of kidney (principal); R00.1 Bradycardia, unspecified; I25.119 Atherosclerotic heart disease of native coronary artery with unspecified angina pectoris; Z88.0 Allergy status to penicillin; Z88.5 Allergy status to narcotic agent; Z88.8 Allergy status to other drugs, medicaments and biological substances; Z79.1 Long term (current) use of non-steroidal anti-inflammatories (NSAID); Z79.899 Other long term (current) drug therapy
CPT/HCPCS: 74176; 80048; 80076; 81001; 83690; 84484; 85025; 93005; 96374; 96375; 96376; 99285; J1171; J1885; J2405; J3010

== ENCOUNTER → 2024-11-22 | Outpatient (CLI) | payer BC ==
[~2024-11-22] MED LIST changes: +ACET-897 PO; +ONDA-282 PO
[2024-11-22 16:11] LABS: AMORPHOUS SEDIMENT MODERATE (NEGATIVE); APPEARANCE, URINE CLOUDY (CLEAR); BACTERIA, URINE AUTO NEGATIVE (NEGATIVE); BILIRUBIN, URINE AUTO NEGATIVE (NEGATIVE); BLOOD, URINE BLOOD NEGATIVE (NEGATIVE); GLUCOSE, URINE (UA) AUTO NEGATIVE (NEGATIVE); KETONE, URINE AUTO NEGATIVE (NEGATIVE); LEUKOCYTE ESTERASE, URINE AUTO NEGATIVE (NEGATIVE); MUCUS, URINE SMALL (NEGATIVE); NITRITE, URINE AUTO NEGATIVE (NEGATIVE); PROTEIN, URINE AUTO NEGATIVE (NEGATIVE); RBC, URINE AUTO 2 /HPF (0-3); SPECIFIC GRAVITY URINE AUTO 1.010 (1.002-1.035); SQUAMOUS EPITHELIAL CELL UR AU 0 /HPF (0-6); UROBILINOGEN, URINE AUTO 0.2 mg/dL (0.0-2.0); WBC, URINE AUTO 1 /HPF (0-3)
== END ==
LOC: M RAD 12:56
PROVIDERS: ATTEND Urology
DX: N20.0 Calculus of kidney (principal)